=== PATIENT | female | born 1975 | race Two or more races ===

== ENCOUNTER 2017-03-20 10:24 | Inpatient (IN) | payer MEDICAID ==
[~2017-03-20] VITALS: Ht 160 cm; Wt 59.0 kg
[2017-03-20] VITALS (16 sets, daily range): BP systolic 75–139; BP diastolic 44–88
[2017-03-20] MEDS ORDERED: VALPROIC ACID1 ML GT (11:06)
[2017-03-20] MEDS ORDERED: LEVETIRACE100 MG/1 M GT (11:06)
[2017-03-20] MEDS ORDERED: FAMOTIDINE20 MG/2 M1 GT (11:06)
[2017-03-20] MEDS ORDERED: METOPROLOL TART25 MG GT (11:06)
[2017-03-20] MEDS ORDERED: ASPIR 8181 MG GT (11:06)
[2017-03-20] MEDS ORDERED: FERROUS SULFAT325 MG GT (11:06)
[2017-03-20 11:38] LABS: APPEARANCE,URINE CLEAR; BILIRUBIN, URINE NEGATIVE (NEGATIVE); COLOR,URINE PALE YELLOW; GLUCOSE, URINE (UA) NEGATIVE (NEGATIVE); KETONES,URINE NEGATIVE (NEGATIVE); LEUKOCYTE ESTERASE ,URINE NEGATIVE (NEGATIVE); NITRITE,URINE NEGATIVE (NEGATIVE); PH,URINE 6 (4.5-8.0); PROTEIN,URINE NEGATIVE (NEGATIVE); UROBILINOGEN,URINE NORMAL MG/DL (0.0-1.0)
[2017-03-20 11:40] LABS: HEMATOCRIT 13.9 % (37.0-47.0); MEAN CORPUSCULAR VOLUME 94 FL (80-99); PLATELET COUNT 202 K/UL (150-450); RED BLOOD COUNT 1.48 M/UL (4.20-5.40); RED CELL DISTRIBUTION WIDTH 13.2 % (11.6-14.8); WHITE BLOOD COUNT 19.5 K/UL (4.8-10.8)
[2017-03-20 11:41] LABS: HEMOGLOBIN 4.9 G/DL (12.0-16.0)
[2017-03-20 11:56] LABS: ANION GAP 10 mmol/L (5-15); BLOOD UREA NITROGEN 20 mg/dL (7-18); CARBON DIOXIDE 25 MMOL/L (21-32); CHLORIDE 101 MMOL/L (98-107); CREATININE 0.6 MG/DL (0.55-1.30); POTASSIUM 3.7 MMOL/L (3.5-5.1); SODIUM 136 MMOL/L (136-145)
[2017-03-20 12:09] LABS: ALANINE AMINOTRANSFERASE 12 U/L (12-78); ALBUMIN 2.4 G/DL (3.4-5.0); ALBUMIN/GLOBULIN RATIO 0.6 (1.0-2.7); ALKALINE PHOSPHATASE 82 U/L (46-116); ASPARTATE AMINO TRANSFERASE 17 U/L (15-37); BILIRUBIN,TOTAL 0.4 MG/DL (0.2-1.0); CKMB < 0.5 NG/ML (0.0-3.6); CREATINE KINASE 24 U/L (26-308)
[2017-03-20] MEDS ORDERED: Piperacillin/Tazobactam 3.375 GM in NS 110 ML IVPB ONE (12:30)
[2017-03-20] MEDS ORDERED: Zosyn 3.375gm inj ONE (12:37)
[2017-03-20 12:45] LABS: BASOPHILS % (AUTO) 0.4 % (0.0-2.0); EOSINOPHILS % (AUTO) 0.2 % (0.0-3.0); HEMATOCRIT 29.3 % (37.0-47.0); HEMOGLOBIN 10.1 G/DL (12.0-16.0); LYMPHOCYTES % (AUTO) 14.6 % (20.0-45.0); MEAN CORPUSCULAR VOLUME 95 FL (80-99); MONOCYTES % (AUTO) 11.1 % (1.0-10.0); NEUTROPHILS % (AUTO) 73.6 % (45.0-75.0); PLATELET COUNT 146 K/UL (150-450); RED BLOOD COUNT 3.09 M/UL (4.20-5.40); RED CELL DISTRIBUTION WIDTH 13.4 % (11.6-14.8); WHITE BLOOD COUNT 11.5 K/UL (4.8-10.8)
--- NOTE | 2017-03-20 14:14 | Emergency Room Report ---
History of Present Illness General Chief Complaint: Dyspnea/Respdistress Source: EMS Present Illness HPI Patient presents with reports of fever and shortness of breath from nursing facility Patient herself is nonverbal cannot provide any information Paramedics report the patient being tachypneic and appears to be in respiratory distress after being removed from the ventilator appear to be breathing better Patient had a documented fever at the facility No reports of vomiting unknown regarding diarrhea Allergies: Coded Allergies: No Known Allergies (Unverified , 03/20/17) Patient History Limited by: medical condition Past Medical History: see triage record Pertinent Family History: unable to obtain Reviewed Nursing Documentation: PMH: Agreed, PSxH: Agreed Nursing Documentation-PMH Hx Hypertension: Yes - anemia Hx Diabetes: Yes Hx Seizures: Yes Review of Systems All Other Systems: limited - Other than the ones mentioned in the history of present illness all others are reviewed however they do stay limited due to the patient's mental status Physical Exam Vital Signs Date Time Temp Pulse Resp B/P (MAP) Pulse Ox O2 Delivery O2 Flow Rate FiO2 03/20/17 10:25 108 30 123/77 99 Mechanical Ventilator 03/20/17 10:30 40 03/20/17 11:24 100.8 Sp02 EP Interpretation: reviewed, normal General Appearance: mild distress - Appears short of breath Head: normocephalic, atraumatic Eyes: bilateral eye PERRL ENT: dry mucus membranes Neck: supple, other - Tracheostomy in place Respiratory: crackles - Diffusely and tachypneic Cardiovascular #1: regular rate, rhythm, no edema Gastrointestinal: non tender - Feeding tube in place, soft, no mass Genitourinary: no CVA tenderness Musculoskeletal: other - Patient is chronically debilitated does not follow commands Neurologic: responsive - To physical stimuli Skin: other - Chronically debilitated, skin tear and edema Procedures Critical Care Time Critical Care Time 50 minutes for multiple re\re evaluations Findings concerning for cardiopulmonary arrest not including any procedural time Medical Decision Making Diagnostic Impression: Primary Impression: Pneumonia Additional Impression: Septic shock ER Course Patient is a fairly complex patient with multiple differential to consideration including but not limited to cardiac cardiopulmonary and vascular emergencies Patient had sepsis protocol initiated Initial fluid bolus along with antibiotics Patient however did again have hypotensive episode requiring pressors Sepsis reexamination Time:1410 VS refer to nursing note cvs: RRR respiratory: improved respiration peripheral pulses: 2+radial cap refill:<2 seconds skin exam: warm, dry, not mottled Labs Test 03/20/17 11:05 03/20/17 12:15 White Blood Count 19.5 K/UL (4.8-10.8) 11.5 K/UL (4.8-10.8) Red Blood Count 1.48 M/UL (4.20-5.40) 3.09 M/UL (4.20-5.40) Hemoglobin 4.9 G/DL (12.0-16.0) 10.1 G/DL (12.0-16.0) Hematocrit 13.9 % (37.0-47.0) 29.3 % (37.0-47.0) Mean Corpuscular Volume 94 FL (80-99) 95 FL (80-99) Mean Corpuscular Hemoglobin 33.2 PG (27.0-31.0) 32.5 PG (27.0-31.0) Mean Corpuscular Hemoglobin Concent 35.5 G/DL (32.0-36.0) 34.3 G/DL (32.0-36.0) Red Cell Distribution Width 13.2 % (11.6-14.8) 13.4 % (11.6-14.8) Platelet Count 202 K/UL (150-450) 146 K/UL (150-450) Mean Platelet Volume 6.3 FL (6.5-10.1) 7.0 FL (6.5-10.1) Neutrophils (%) (Auto) % (45.0-75.0) 73.6 % (45.0-75.0) Lymphocytes (%) (Auto) % (20.0-45.0) 14.6 % (20.0-45.0) Monocytes (%) (Auto) % (1.0-10.0) 11.1 % (1.0-10.0) Eosinophils (%) (Auto) % (0.0-3.0) 0.2 % (0.0-3.0) Basophils (%) (Auto) % (0.0-2.0) 0.4 % (0.0-2.0) Differential Total Cells Counted 100 Neutrophils % (Manual) 79 % (45-75) Lymphocytes % (Manual) 11 % (20-45) Monocytes % (Manual) 5 % (1-10) Eosinophils % (Manual) 0 % (0-3) Basophils % (Manual) 0 % (0-2) Band Neutrophils 5 % (0-8) Platelet Estimate Adequate Platelet Morphology Normal Hypochromasia 1+ Urine Color Pale yellow Urine Appearance Clear Urine pH 6 (4.5-8.0) Urine Specific [place] 1.005 (1.005-1.035) Urine Protein Negative (NEGATIVE) Urine Glucose (UA) Negative (NEGATIVE) Urine Ketones Negative (NEGATIVE) Urine Occult Blood Negative (NEGATIVE) Urine Nitrite Negative (NEGATIVE) Urine Bilirubin Negative (NEGATIVE) Urine Urobilinogen Normal MG/DL (0.0-1.0) Urine Leukocyte Esterase Negative (NEGATIVE) Sodium Level 136 MMOL/L (136-145) Potassium Level 3.7 MMOL/L (3.5-5.1) Chloride Level 101 MMOL/L (98-107) Carbon Dioxide Level 25 MMOL/L (21-32) Anion Gap 10 mmol/L (5-15) Blood Urea Nitrogen 20 mg/dL (7-18) Creatinine 0.6 MG/DL (0.55-1.30) Estimat Glomerular Filtration Rate > 60 mL/min (>60) Glucose Level 220 MG/DL (74-106) Lactic Acid Level 4.40 mmol/L (0.66-2.22) 2.70 mmol/L (0.66-2.22) Calcium Level 9.0 MG/DL (8.5-10.1) Total Bilirubin 0.4 MG/DL (0.2-1.0) Aspartate Amino Transf (AST/SGOT) 17 U/L (15-37) Alanine Aminotransferase (ALT/SGPT) 12 U/L (12-78) Alkaline Phosphatase 82 U/L (46-116) Total Creatine Kinase 24 U/L (26-308) Creatine Kinase MB < 0.5 NG/ML (0.0-3.6) Creatine Kinase MB Relative Index Troponin I 0.000 ng/mL (0.000-0.056) Pro-B-Type Natriuretic Peptide 511 pg/mL (0-125) Total Protein 6.6 G/DL (6.4-8.2) Albumin 2.4 G/DL (3.4-5.0) Globulin 4.2 g/dL Albumin/Globulin Ratio 0.6 (1.0-2.7) Lipase 56 U/L (73-393) Rhythm Strip Diag. Results EP Interpretation: yes Rate: 77 Rhythm: NSR, no PVC's, no ectopy Chest X-Ray Diagnostic Results Chest X-Ray Diagnostic Results : Chest X-Ray Ordered: Yes # of Views/Limited/Complete: 1 View Indication: Shortness of Breath EP Interpretation: Yes Interpretation: no pneumothorax, other - Bilateral effusions, right lower lobe infiltrate borderline cardiomegaly Impression: Other - Infiltrate Electronically Signed by: Tori Hayden DO Last Vital Signs Date Time Temp Pulse Resp B/P (MAP) Pulse Ox O2 Delivery O2 Flow Rate FiO2 03/20/17 14:03 94 18 100/66 99 Mechanical Ventilator 40 03/20/17 13:48 98.5 Status: worsened Disposition: ADMITTED INPATIENT Condition: Critical Referrals: ADAMARIS ESCOBEDO (PCP) TORI HAYDEN D.O. Mar 20, 2017 14:14
[2017-03-20] MEDS ORDERED: DOPamine 400mg/250ml 250 ML IV SCH (14:15)
[2017-03-20] MEDS ORDERED: Levophed 4mg/4mL Inj IV ONE (14:33)
--- NOTE | 2017-03-20 14:40 | Diagnostic Imaging Report ---
Indication: Shortness of breath Technique: One view of the chest Comparison: none Findings: Hazy opacity is seen in the right lung base. Left lung and pleural space are clear. There is a left arm PICC. The tracheostomy. The heart size is normal. There is a gastrostomy. The stomach is distended Impression: Hazy right basilar opacity, may reflect infiltrate, pleural fluid, or combination of both PICC, tracheostomy, and gastrostomy are demonstrated
[2017-03-20] MEDS ORDERED: NS 275 ML ONE (14:42)
[2017-03-20] MEDS ORDERED: LORazepam Inj 2mg/ml 1ml IV PRN (15:15)
[2017-03-20] MEDS ORDERED: Morphine Sulfate 4mg/ml Inj IVP PRN (15:15)
[2017-03-20] MEDS ORDERED: Miralax 17gm pkt ORAL PRN (15:15)
[2017-03-20] MEDS ORDERED: Albuterol/Ipratropium 3ml neb HHN PRN (15:15)
[2017-03-20] MEDS ORDERED: Vancomycin 1.5 GM/D5W 250ML IVPB ONE (17:00)
[2017-03-20] MEDS ORDERED: Acetaminophen 650mg/20.3ml ONE (18:54)
[2017-03-20] MEDS ORDERED: LORazepam Inj 2mg/ml 1ml IV ONE (19:45)
[2017-03-20] MEDS: levETIRAcetam 500mg/5ml Liquid GT SCH (19:56)
[2017-03-20] MEDS ORDERED: ARTIFICIAL TEAR15 ML BOTH EYES (20:03)
[2017-03-20] MEDS: Heparin 5000 units/ml inj SUBQ SCH (21:22)
[2017-03-21] VITALS (23 sets, daily range): BP systolic 86–137; BP diastolic 48–99
[2017-03-21] MEDS: Vancomycin 1 GM in D5W 275 ML IVPB SCH ×2 (04:36→17:57)
--- NOTE | 2017-03-21 07:25 | History and Physical ---
History of Present Illness General Date patient seen: Mar 20, 2017 Reason for Hospitalization: Dyspnea/Respdistress Present Illness HPI 41 year old female with hx of chronic trach/vent/peg/ non-verbal from [facility] presented with reports of fever and shortness. She was febrile and hypotensive in the ER and was started on Dopamine and transferred to ICU Allergies: Coded Allergies: No Known Allergies (Unverified , 03/20/17) Medication History Scheduled Aspirin* (Aspir 81*), 81 MG GT DAILY, (Reported) Dextran 70/Hypromellose (Artificial Tears Eye Drops*), 2 DROP BOTH EYES Q6HR, ( Reported) Famotidine (Famotidine), 20 MG GT DAILY, (Reported) Ferrous Sulfate* (Ferrous Sulfate*), 7.5 ML GT DAILY, (Reported) Levetiracetam* (Levetiracetam*), 10 ML GT BID, (Reported) Metoprolol Tartrate* (Metoprolol Tartrate*), 25 MG GT EVERY 12 HOURS, (Reported) Discontinued Medications Valproic Acid (Valproic Acid), 15 ML GT TID, (Reported) Discontinued Reason: Prescription changed Patient History Healthcare decision maker NYLA ACUNA Resuscitation status Full Code Advanced Directive on File No Past Medical/Surgical History Past Medical/Surgical History: (1) Chronic respiratory failure (2) G tube feedings Review of Systems All Other Systems: negative except mentioned in HPI Physical Exam General Appearance: cachetic Lines, tubes and drains: gtube Neck: non-tender, normal alignment Respiratory/Chest: chest wall non-tender, lungs clear Cardiovascular/Chest: normal peripheral pulses, regular rhythm, no JVD Last 24 Hour Vital Signs Date Time Temp Pulse Resp B/P (MAP) Pulse Ox O2 Delivery O2 Flow Rate FiO2 03/21/17 06:00 99.5 98 19 137/68 100 Mechanical Ventilator 40 03/21/17 05:29 85 19 40 03/21/17 05:00 105 18 98/56 100 Mechanical Ventilator 40 03/21/17 04:00 109 03/21/17 04:00 100.1 109 18 93/66 100 Mechanical Ventilator 40 03/21/17 04:00 40 03/21/17 03:27 98 20 40 03/21/17 03:00 111 18 98/48 99 Mechanical Ventilator 40 03/21/17 02:43 100.4 03/21/17 02:00 114 20 106/65 100 Mechanical Ventilator 40 03/21/17 01:30 100.4 113 20 117/74 100 Mechanical Ventilator 40 03/21/17 01:10 100 18 40 2 01:00 93 19 109/69 100 Mechanical Ventilator 40 2 00:00 100.0 88 18 101/79 100 Mechanical Ventilator 40 03/21/17 00:00 40 03/20/17 23:41 98 2 23:38 99 20 40 2 23:30 93 19 114/71 100 Mechanical Ventilator 40 03/20/17 23:00 77 18 137/68 100 Mechanical Ventilator 40 03/20/17 22:30 79 18 98/68 100 Mechanical Ventilator 40 03/20/17 22:00 78 18 90/59 100 Mechanical Ventilator 40 218 21:30 85 18 75/44 100 Mechanical Ventilator 40 03/20/17 21:15 88 18 93/56 100 Mechanical Ventilator 40 03/20/17 21:01 98 03/20/17 21:00 40 03/20/17 21:00 99.4 95 18 112/73 100 Mechanical Ventilator 40 03/20/17 20:56 78 18 40 03/20/17 19:31 100.3 85 18 119/85 100 Mechanical Ventilator 40 03/20/17 19:30 119/85 218 19:15 162/95 2 19:00 141/92 218 18:45 94 18 40 2 18:42 100.3 93 18 135/84 100 Mechanical Ventilator 40 03/20/17 18:30 132/87 218 18:00 92 18 130/86 100 Mechanical Ventilator 40 18 18:00 125/65 2/9/18 17:45 113/74 218 17:30 125/65 2/18 17:15 118/78 2//18 17:15 96 18 40 218 17:00 126/78 2918 16:51 81 16 111/71 100 Mechanical Ventilator 40 218 16:50 119/81 2//18 16:45 114/79 218 16:40 125/81 2/9/18 16:35 161/88 03/20/17 16:20 132/90 03/20/17 16:15 138/83 03/20/17 16:10 138/82 03/20/17 16:05 129/84 03/20/17 16:00 139/88 03/20/17 16:00 98.8 85 18 139/88 100 Mechanical Ventilator 40 03/20/17 15:55 140/83 03/20/17 15:50 133/81 03/20/17 15:45 131/77 03/20/17 15:40 129/81 03/20/17 15:35 127/82 03/20/17 15:30 126/79 03/20/17 15:29 94 18 40 03/20/17 15:25 118/84 03/20/17 15:20 129/81 03/20/17 15:15 121/87 03/20/17 15:10 125/72 03/20/17 15:05 137/84 03/20/17 15:00 84 18 139/88 99 Mechanical Ventilator 40 03/20/17 15:00 138/76 03/20/17 14:55 87/42 03/20/17 14:50 81/42 03/20/17 14:45 87/63 03/20/17 14:44 87/63 03/20/17 14:16 81/54 03/20/17 14:03 94 18 100/66 99 Mechanical Ventilator 40 03/20/17 13:48 98.5 03/20/17 13:45 97 20 113/78 99 Mechanical Ventilator 40 03/20/17 13:15 100 20 40 03/20/17 12:36 101 20 112/80 100 Mechanical Ventilator 40 03/20/17 11:32 45 03/20/17 11:24 100.8 104 20 97/66 100 Mechanical Ventilator 45 03/20/17 11:00 40 03/20/17 10:35 103 20 Mechanical Ventilator 45 03/20/17 10:30 108 20 40 03/20/17 10:25 108 30 123/77 99 Mechanical Ventilator Intake and Output 03/20/17 03/21/17 19:00 07:00 Intake Total 2000 ml 420 ml Output Total 1 ml 180 ml Balance 1999 ml 240 ml Intake Oral 0 ml IV Total 2000 ml 275 ml Tube Feeding 105 ml Other 40 ml Output Urine Total 1 ml 180 ml # Voids 5 Laboratory Tests Test 03/20/17 11:05 03/20/17 12:15 03/21/17 04:20 03/21/17 06:40 White Blood Count 19.5 K/UL (4.8-10.8) H 11.5 K/UL (4.8-10.8) H Pending Red Blood Count 1.48 M/UL (4.20-5.40) L 3.09 M/UL (4.20-5.40) L Pending Hemoglobin 4.9 G/DL (12.0-16.0) *L 10.1 G/DL (12.0-16.0) #L Pending Hematocrit 13.9 % (37.0-47.0) L 29.3 % (37.0-47.0) #L Pending Mean Corpuscular Volume 94 FL (80-99) 95 FL (80-99) Pending Mean Corpuscular Hemoglobin 33.2 PG (27.0-31.0) H 32.5 PG (27.0-31.0) H Pending Mean Corpuscular Hemoglobin Concent 35.5 G/DL (32.0-36.0) 34.3 G/DL (32.0-36.0) Pending Red Cell Distribution Width 13.2 % (11.6-14.8) 13.4 % (11.6-14.8) Pending Platelet Count 202 K/UL (150-450) 146 K/UL (150-450) L Pending Mean Platelet Volume 6.3 FL (6.5-10.1) L 7.0 FL (6.5-10.1) Pending Neutrophils (%) (Auto) % (45.0-75.0) 73.6 % (45.0-75.0) Pending Lymphocytes (%) (Auto) % (20.0-45.0) 14.6 % (20.0-45.0) L Pending Monocytes (%) (Auto) % (1.0-10.0) 11.1 % (1.0-10.0) H Pending Eosinophils (%) (Auto) % (0.0-3.0) 0.2 % (0.0-3.0) Pending Basophils (%) (Auto) % (0.0-2.0) 0.4 % (0.0-2.0) Pending Differential Total Cells Counted 100 Neutrophils % (Manual) 79 % (45-75) H Lymphocytes % (Manual) 11 % (20-45) L Monocytes % (Manual) 5 % (1-10) Eosinophils % (Manual) 0 % (0-3) Basophils % (Manual) 0 % (0-2) Band Neutrophils 5 % (0-8) Platelet Estimate Adequate Platelet Morphology Normal Hypochromasia 1+ Urine Color Pale yellow Urine Appearance Clear Urine pH 6 (4.5-8.0) Urine Specific [place] 1.005 (1.005-1.035) Urine Protein Negative (NEGATIVE) Urine Glucose (UA) Negative (NEGATIVE) Urine Ketones Negative (NEGATIVE) Urine Occult Blood Negative (NEGATIVE) Urine Nitrite Negative (NEGATIVE) Urine Bilirubin Negative (NEGATIVE) Urine Urobilinogen Normal MG/DL (0.0-1.0) Urine Leukocyte Esterase Negative (NEGATIVE) Sodium Level 136 MMOL/L (136-145) Pending Potassium Level 3.7 MMOL/L (3.5-5.1) Pending Chloride Level 101 MMOL/L (98-107) Pending Carbon Dioxide Level 25 MMOL/L (21-32) Pending Anion Gap 10 mmol/L (5-15) Blood Urea Nitrogen 20 mg/dL (7-18) H Pending Creatinine 0.6 MG/DL (0.55-1.30) Pending Estimat Glomerular Filtration Rate > 60 mL/min (>60) Pending Glucose Level 220 MG/DL (74-106) H Pending Lactic Acid Level 4.40 mmol/L (0.66-2.22) H 2.70 mmol/L (0.66-2.22) H Pending Calcium Level 9.0 MG/DL (8.5-10.1) Pending Total Bilirubin 0.4 MG/DL (0.2-1.0) Aspartate Amino Transf (AST/SGOT) 17 U/L (15-37) Alanine Aminotransferase (ALT/SGPT) 12 U/L (12-78) Alkaline Phosphatase 82 U/L (46-116) Total Creatine Kinase 24 U/L (26-308) L Creatine Kinase MB < 0.5 NG/ML (0.0-3.6) Creatine Kinase MB Relative Index Troponin I 0.000 ng/mL (0.000-0.056) Pro-B-Type Natriuretic Peptide 511 pg/mL (0-125) H Total Protein 6.6 G/DL (6.4-8.2) Albumin 2.4 G/DL (3.4-5.0) L Pending Globulin 4.2 g/dL Albumin/Globulin Ratio 0.6 (1.0-2.7) L Lipase 56 U/L (73-393) L Phosphorus Level Pending Microbiology Date/Time Source Procedure Growth Status 03/20/17 11:05 Nasal Nares Influenza Types A,B Antigen (GIDEON) - Final Complete Height (Feet): 5 Height (Inches): 3.00 Weight (Pounds): 130 Medications Current Medications Medications (Trade) Dose Ordered Sig/Marlen Route PRN Reason Start Time Stop Time Status Last Admin Dose Admin Acetaminophen (Tylenol) 650 mg Q4H PRN ORAL FEVER 03/20/17 15:15 04/19/17 15:14 03/21/17 01:44 Albuterol/ Ipratropium (Albuterol/ Ipratropium) 3 ml EVERY 4 HOURS PRN HHN Shortness of Breath 03/20/17 15:15 03/25/17 15:14 Dextrose (Dextrose 50%) STAT PRN IV Hypoglycemia 03/20/17 15:15 04/19/17 15:14 Dopamine HCl/ Dextrose 250 ml @ 0 mls/hr Q24H IV 03/20/17 14:15 04/19/17 14:14 03/20/17 14:16 Heparin Sodium (Porcine) (Heparin 5000 units/ml) 5,000 units EVERY 12 HOURS SUBQ 03/20/17 21:00 04/19/17 20:59 03/20/17 21:22 Levetiracetam (Keppra) 1,000 mg BID GT 03/20/17 18:00 04/19/17 17:59 03/20/17 19:56 Lorazepam (Ativan 2mg/ml 1ml) 2 mg EVERY 2 HOURS PRN IV For Anxiety 03/20/17 15:15 03/27/17 15:14 03/21/17 01:43 Morphine Sulfate (Morphine Sulfate) 4 mg EVERY 4 HOURS PRN IVP Severe Pain (Pain Scale 7-10) 03/20/17 15:15 03/27/17 15:14 Norepinephrine Bitartrate 8 mg/ Sodium Chloride 250 ml @ 0 mls/hr Q24H PRN IV For hypotension 03/20/17 22:00 04/19/17 21:59 Ondansetron HCl (Zofran) 4 mg Q6H PRN IVP Nausea & Vomiting 03/20/17 15:15 04/19/17 15:14 Pantoprazole (Protonix) 40 mg DAILY IV 03/21/17 09:00 04/20/17 08:59 Polyethylene Glycol (Miralax) 17 gm DAILYPRN PRN ORAL Constipation 03/20/17 15:15 04/19/17 15:14 Vancomycin HCl 1 gm/Dextrose 275 ml @ 183.3 mls/ hr Q12H IVPB 03/21/17 05:00 03/26/17 04:59 03/21/17 04:36 Assessment/Plan Problem List: (1) Septic shock ICD Codes: A41.9 - Sepsis, unspecified organism; R65.21 - Severe sepsis with septic shock SNOMED: 36435043 (2) Pneumonia ICD Codes: J18.9 - Pneumonia, unspecified organism SNOMED: 119177910 (3) Chronic respiratory failure ICD Codes: J96.10 - Chronic respiratory failure, unspecified whether with hypoxia or hypercapnia SNOMED: 03432090 (4) G tube feedings ICD Codes: Z93.1 - Gastrostomy status SNOMED: 761188345, 701026792 Assessment/Plan iv fluids iv abx check electroltyes dvt prophylaxis gtube feeding check electroltyes total life support LEATHA FOSS Mar 21, 2017 07:25
--- NOTE | 2017-03-21 07:27 | Pulmonolgy Critical Care Note ---
Critical Care - Asmt/Plan Problems: (1) Septic shock (2) Chronic respiratory failure (3) G tube feedings (4) Pneumonia Respiratory: monitor respiratory rate Cardiac: continue to monitor HR/BP Renal: F/U I&O, keep IV fluid Infectious Disease: check cultures Gastrointestinal: hold feedings Endocrine: monitor blood sugar, check HgA1C Neurologic: PRN Ativan Affect: PRN ativan Prophylaxis: Heparin Time Spent (Minutes): 30 Critical Care - Objective Last 24 Hour Vital Signs Date Time Temp Pulse Resp B/P (MAP) Pulse Ox O2 Delivery O2 Flow Rate FiO2 03/21/17 06:50 89 18 40 03/21/17 06:00 99.5 98 19 137/68 100 Mechanical Ventilator 40 03/21/17 05:29 85 19 40 03/21/17 05:00 105 18 98/56 100 Mechanical Ventilator 40 03/21/17 04:00 109 03/21/17 04:00 100.1 109 18 93/66 100 Mechanical Ventilator 40 03/21/17 04:00 40 03/21/17 03:27 98 20 40 03/21/17 03:00 111 18 98/48 99 Mechanical Ventilator 40 03/21/17 02:43 100.4 03/21/17 02:00 114 20 106/65 100 Mechanical Ventilator 40 03/21/17 01:30 100.4 113 20 117/74 100 Mechanical Ventilator 40 03/21/17 01:10 100 18 40 03/21/17 01:00 93 19 109/69 100 Mechanical Ventilator 40 03/21/17 00:00 100.0 88 18 101/79 100 Mechanical Ventilator 40 03/21/17 00:00 40 03/20/17 23:41 98 03/20/17 23:38 99 20 40 03/20/17 23:30 93 19 114/71 100 Mechanical Ventilator 40 03/20/17 23:00 77 18 137/68 100 Mechanical Ventilator 40 03/20/17 22:30 79 18 98/68 100 Mechanical Ventilator 40 03/20/17 22:00 78 18 90/59 100 Mechanical Ventilator 40 03/20/17 21:30 85 18 75/44 100 Mechanical Ventilator 40 03/20/17 21:15 88 18 93/56 100 Mechanical Ventilator 40 03/20/17 21:01 98 03/20/17 21:00 40 2/9/18 21:00 99.4 95 18 112/73 100 Mechanical Ventilator 40 218 20:56 78 18 40 218 19:31 100.3 85 18 119/85 100 Mechanical Ventilator 40 218 19:30 119/85 218 19:15 162/95 2/18 19:00 141/92 218 18:45 94 18 40 218 18:42 100.3 93 18 135/84 100 Mechanical Ventilator 40 18 18:30 132/87 218 18:00 92 18 130/86 100 Mechanical Ventilator 40 18 18:00 125/65 18 17:45 113/74 03/20/17 17:30 125/65 18 17:15 118/78 18 17:15 96 18 40 03/20/17 17:00 126/78 18 16:51 81 16 111/71 100 Mechanical Ventilator 40 03/20/17 16:50 119/81 03/20/17 16:45 114/79 18 16:40 125/81 18 16:35 161/88 18 16:20 132/90 03/20/17 16:15 138/83 03/20/17 16:10 138/82 18 16:05 129/84 18 16:00 139/88 03/20/17 16:00 98.8 85 18 139/88 100 Mechanical Ventilator 40 03/20/17 15:55 140/83 2 15:50 133/81 18 15:45 131/77 18 15:40 129/81 18 15:35 127/82 218 15:30 126/79 18 15:29 94 18 40 03/20/17 15:25 118/84 218 15:20 129/81 218 15:15 121/87 18 15:10 125/72 18 15:05 137/84 2 15:00 84 18 139/88 99 Mechanical Ventilator 40 03/20/17 15:00 138/76 03/20/17 14:55 87/42 03/20/17 14:50 81/42 03/20/17 14:45 87/63 03/20/17 14:44 87/63 03/20/17 14:16 81/54 03/20/17 14:03 94 18 100/66 99 Mechanical Ventilator 40 03/20/17 13:48 98.5 03/20/17 13:45 97 20 113/78 99 Mechanical Ventilator 40 03/20/17 13:15 100 20 40 03/20/17 12:36 101 20 112/80 100 Mechanical Ventilator 40 03/20/17 11:32 45 03/20/17 11:24 100.8 104 20 97/66 100 Mechanical Ventilator 45 03/20/17 11:00 40 03/20/17 10:35 103 20 Mechanical Ventilator 45 03/20/17 10:30 108 20 40 03/20/17 10:25 108 30 123/77 99 Mechanical Ventilator Status: obtunded Condition: critical HEENT: atraumatic Neck: full ROM Abdomen: non-tender, active bowel sounds Extremities: edema Micro: Microbiology Date/Time Source Procedure Growth Status 03/20/17 11:05 Nasal Nares Influenza Types A,B Antigen (GIDEON) - Final Complete Critical Care - Subjective ROS Limited/Unobtainable: Yes ICU Day: 2 Condition: critical EKG Rhythm: Sinus Rhythm FI02: 40 Vent Support Breath Rate: 18 Vent Support Mode: AC Vent Tidal Volume: 500 Sputum Amount: Small PEEP: 5.0 PIP: 22 Tube Feeding Amount: 30 I&O: Intake and Output 03/20/17 03/21/17 19:00 07:00 Intake Total 2000 ml 420 ml Output Total 1 ml 180 ml Balance 1999 ml 240 ml Intake Oral 0 ml IV Total 2000 ml 275 ml Tube Feeding 105 ml Other 40 ml Output Urine Total 1 ml 180 ml # Voids 5 CXR: no change Labs: Laboratory Tests Test 03/20/17 11:05 03/20/17 12:15 03/21/17 04:20 03/21/17 06:40 White Blood Count 19.5 K/UL (4.8-10.8) H 11.5 K/UL (4.8-10.8) H Pending Red Blood Count 1.48 M/UL (4.20-5.40) L 3.09 M/UL (4.20-5.40) L Pending Hemoglobin 4.9 G/DL (12.0-16.0) *L 10.1 G/DL (12.0-16.0) #L Pending Hematocrit 13.9 % (37.0-47.0) L 29.3 % (37.0-47.0) #L Pending Mean Corpuscular Volume 94 FL (80-99) 95 FL (80-99) Pending Mean Corpuscular Hemoglobin 33.2 PG (27.0-31.0) H 32.5 PG (27.0-31.0) H Pending Mean Corpuscular Hemoglobin Concent 35.5 G/DL (32.0-36.0) 34.3 G/DL (32.0-36.0) Pending Red Cell Distribution Width 13.2 % (11.6-14.8) 13.4 % (11.6-14.8) Pending Platelet Count 202 K/UL (150-450) 146 K/UL (150-450) L Pending Mean Platelet Volume 6.3 FL (6.5-10.1) L 7.0 FL (6.5-10.1) Pending Neutrophils (%) (Auto) % (45.0-75.0) 73.6 % (45.0-75.0) Pending Lymphocytes (%) (Auto) % (20.0-45.0) 14.6 % (20.0-45.0) L Pending Monocytes (%) (Auto) % (1.0-10.0) 11.1 % (1.0-10.0) H Pending Eosinophils (%) (Auto) % (0.0-3.0) 0.2 % (0.0-3.0) Pending Basophils (%) (Auto) % (0.0-2.0) 0.4 % (0.0-2.0) Pending Differential Total Cells Counted 100 Neutrophils % (Manual) 79 % (45-75) H Lymphocytes % (Manual) 11 % (20-45) L Monocytes % (Manual) 5 % (1-10) Eosinophils % (Manual) 0 % (0-3) Basophils % (Manual) 0 % (0-2) Band Neutrophils 5 % (0-8) Platelet Estimate Adequate Platelet Morphology Normal Hypochromasia 1+ Urine Color Pale yellow Urine Appearance Clear Urine pH 6 (4.5-8.0) Urine Specific [place] 1.005 (1.005-1.035) Urine Protein Negative (NEGATIVE) Urine Glucose (UA) Negative (NEGATIVE) Urine Ketones Negative (NEGATIVE) Urine Occult Blood Negative (NEGATIVE) Urine Nitrite Negative (NEGATIVE) Urine Bilirubin Negative (NEGATIVE) Urine Urobilinogen Normal MG/DL (0.0-1.0) Urine Leukocyte Esterase Negative (NEGATIVE) Sodium Level 136 MMOL/L (136-145) Pending Potassium Level 3.7 MMOL/L (3.5-5.1) Pending Chloride Level 101 MMOL/L (98-107) Pending Carbon Dioxide Level 25 MMOL/L (21-32) Pending Anion Gap 10 mmol/L (5-15) Blood Urea Nitrogen 20 mg/dL (7-18) H Pending Creatinine 0.6 MG/DL (0.55-1.30) Pending Estimat Glomerular Filtration Rate > 60 mL/min (>60) Pending Glucose Level 220 MG/DL (74-106) H Pending Lactic Acid Level 4.40 mmol/L (0.66-2.22) H 2.70 mmol/L (0.66-2.22) H Pending Calcium Level 9.0 MG/DL (8.5-10.1) Pending Total Bilirubin 0.4 MG/DL (0.2-1.0) Aspartate Amino Transf (AST/SGOT) 17 U/L (15-37) Alanine Aminotransferase (ALT/SGPT) 12 U/L (12-78) Alkaline Phosphatase 82 U/L (46-116) Total Creatine Kinase 24 U/L (26-308) L Creatine Kinase MB < 0.5 NG/ML (0.0-3.6) Creatine Kinase MB Relative Index Troponin I 0.000 ng/mL (0.000-0.056) Pro-B-Type Natriuretic Peptide 511 pg/mL (0-125) H Total Protein 6.6 G/DL (6.4-8.2) Albumin 2.4 G/DL (3.4-5.0) L Pending Globulin 4.2 g/dL Albumin/Globulin Ratio 0.6 (1.0-2.7) L Lipase 56 U/L (73-393) L Phosphorus Level Pending LEATHA FOSS Mar 21, 2017 07:26
[2017-03-21 07:33] LABS: BASOPHILS % (AUTO) 0.4 % (0.0-2.0); EOSINOPHILS % (AUTO) 0.7 % (0.0-3.0); HEMATOCRIT 23.7 % (37.0-47.0); HEMOGLOBIN 8.2 G/DL (12.0-16.0); LYMPHOCYTES % (AUTO) 14.5 % (20.0-45.0); MEAN CORPUSCULAR VOLUME 95 FL (80-99); MONOCYTES % (AUTO) 7.1 % (1.0-10.0); NEUTROPHILS % (AUTO) 77.3 % (45.0-75.0); PLATELET COUNT 135 K/UL (150-450); RED CELL DISTRIBUTION WIDTH 13.6 % (11.6-14.8); WHITE BLOOD COUNT 9.3 K/UL (4.8-10.8)
[2017-03-21 07:43] LABS: ALBUMIN 2.1 G/DL (3.4-5.0); ANION GAP 8 mmol/L (5-15); BLOOD UREA NITROGEN 11 mg/dL (7-18); CALCIUM 8.6 MG/DL (8.5-10.1); CARBON DIOXIDE 27 MMOL/L (21-32); CHLORIDE 110 MMOL/L (98-107); CREATININE 0.4 MG/DL (0.55-1.30); PHOSPHORUS 2.8 MG/DL (2.5-4.9); SODIUM 144 MMOL/L (136-145)
[2017-03-21 07:48] LABS: POTASSIUM 2.7 MMOL/L (3.5-5.1)
[2017-03-21] MEDS: Heparin 5000 units/ml inj SUBQ SCH ×2 (09:00→22:58)
[2017-03-21] MEDS: Pantoprazole Inj IV SCH (09:32)
[2017-03-21] MEDS: levETIRAcetam 500mg/5ml Liquid GT SCH ×2 (09:32→18:01)
[2017-03-21] MEDS ORDERED: Tubing IV Secondary IV ONE (16:43)
[2017-03-21] MEDS ORDERED: Sterile Water Irrig 1000ml IRRIG ONE (16:43)
[2017-03-21] MEDS ORDERED: NS 275ml ONE (16:43)
[2017-03-22] VITALS: BP 138/61
[2017-03-22 04:00] VITALS: BP 137/97
[2017-03-22] MEDS ORDERED: Dyna-Hex 2% Top Sol 2oz TOPIC ONE (04:00)
[2017-03-22 05:30] LABS: BASOPHILS % (AUTO) 0.5 % (0.0-2.0); EOSINOPHILS % (AUTO) 3.5 % (0.0-3.0); HEMATOCRIT 27.7 % (37.0-47.0); HEMOGLOBIN 9.4 G/DL (12.0-16.0); LYMPHOCYTES % (AUTO) 21.2 % (20.0-45.0); MEAN CORPUSCULAR VOLUME 95 FL (80-99); MONOCYTES % (AUTO) 7.7 % (1.0-10.0); NEUTROPHILS % (AUTO) 67.1 % (45.0-75.0); PLATELET COUNT 147 K/UL (150-450); RED BLOOD COUNT 2.91 M/UL (4.20-5.40); RED CELL DISTRIBUTION WIDTH 13.3 % (11.6-14.8); WHITE BLOOD COUNT 6.6 K/UL (4.8-10.8)
[2017-03-22 05:37] LABS: PHOSPHORUS 4.2 MG/DL (2.5-4.9)
[2017-03-22 05:56] LABS: ALANINE AMINOTRANSFERASE 22 U/L (12-78); ALBUMIN 2.3 G/DL (3.4-5.0); ALBUMIN/GLOBULIN RATIO 0.5 (1.0-2.7); ALKALINE PHOSPHATASE 62 U/L (46-116); ANION GAP 10 mmol/L (5-15); ASPARTATE AMINO TRANSFERASE 18 U/L (15-37); BILIRUBIN,TOTAL 0.5 MG/DL (0.2-1.0); BLOOD UREA NITROGEN 8 mg/dL (7-18); CALCIUM 9.2 MG/DL (8.5-10.1); CARBON DIOXIDE 25 MMOL/L (21-32); CHLORIDE 108 MMOL/L (98-107); CREATININE 0.5 MG/DL (0.55-1.30); POTASSIUM 3.8 MMOL/L (3.5-5.1); SODIUM 143 MMOL/L (136-145)
[2017-03-22] MEDS ORDERED: Vancomycin 750mg/NS 250ml IVPB SCH (07:00)
[2017-03-22 08:00] VITALS: BP 129/91
--- NOTE | 2017-03-22 08:00 | Pulmonolgy Critical Care Note ---
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 Critical Care - Objective Last 24 Hour Vital Signs Date Time Temp Pulse Resp B/P (MAP) Pulse Ox O2 Delivery O2 Flow Rate FiO2 03/22/17 06:58 121 21 40 03/22/17 05:20 117 28 40 03/22/17 04:00 98.6 109 18 137/97 98 Mechanical Ventilator 40 03/22/17 04:00 112 03/22/17 04:00 40 03/22/17 03:20 104 21 40 03/22/17 01:21 112 18 40 03/22/17 00:00 40 03/22/17 00:00 104 03/22/17 00:00 97.7 106 18 138/61 97 Mechanical Ventilator 40 03/21/17 22:48 111 19 40 03/21/17 21:10 108 20 40 03/21/17 20:00 99.5 110 18 114/83 97 Mechanical Ventilator 40 03/21/17 20:00 107 03/21/17 20:00 40 03/21/17 19:45 108 19 110/75 100 Mechanical Ventilator 40 03/21/17 19:13 106 19 40 03/21/17 19:00 106 18 121/85 100 Mechanical Ventilator 40 03/21/17 18:00 102 18 124/99 100 Mechanical Ventilator 40 03/21/17 17:00 97 18 116/81 98 Mechanical Ventilator 40 03/21/17 16:53 106 18 40 03/21/17 16:00 107 03/21/17 16:00 40 03/21/17 16:00 99.7 103 18 104/64 100 Mechanical Ventilator 40 03/21/17 15:00 107 18 108/73 98 Mechanical Ventilator 40 03/21/17 14:49 103 20 40 03/21/17 14:00 104 18 98/63 100 Mechanical Ventilator 40 03/21/17 13:00 96 18 99/61 100 Mechanical Ventilator 40 03/21/17 12:42 101 18 40 03/21/17 12:00 96 03/21/17 12:00 40 03/21/17 12:00 99.8 95 18 93/62 98 Mechanical Ventilator 40 03/21/17 11:00 102 18 95/64 100 Mechanical Ventilator 40 03/21/17 10:50 102 18 40 03/21/17 10:00 110 21 92/62 100 Mechanical Ventilator 40 03/21/17 09:12 88 20 40 03/21/17 09:00 93 19 87/52 100 Mechanical Ventilator 40 03/21/17 08:00 88 03/21/17 08:00 40 03/21/17 08:00 99.9 90 18 91/60 100 Mechanical Ventilator 40 Status: awake Condition: critical HEENT: atraumatic Lungs: clear Heart: HR/BP stable, regular Abdomen: non-tender, feeding tube Extremities: edema Micro: Microbiology Date/Time Source Procedure Growth Status 03/20/17 11:15 Blood Blood Culture - Preliminary NO GROWTH AFTER 24 HOURS Resulted 03/20/17 11:05 Blood Blood Culture - Preliminary NO GROWTH AFTER 24 HOURS Resulted 03/20/17 11:05 Nasal Nares Influenza Types A,B Antigen (GIDEON) - Final Complete Critical Care - Subjective ROS Limited/Unobtainable: No Condition: critical EKG Rhythm: Sinus Rhythm FI02: 40 Vent Support Breath Rate: 18 Vent Support Mode: AC Vent Tidal Volume: 500 Sputum Amount: Large PEEP: 5.0 PIP: 28 Tube Feeding Amount: 30 I&O: Intake and Output 03/21/17 03/22/17 19:00 07:00 Intake Total 780 ml 560 ml Output Total 376 ml 400 ml Balance 404 ml 160 ml Free Water 80 ml 200 ml Tube Feeding 360 ml 360 ml Other 340 ml Output Urine Total 375 ml 400 ml Stool Total 1 ml # Bowel Movements 2 CXR: bilateral infiltrate Labs: Laboratory Tests Test 03/22/17 03:50 White Blood Count 6.6 K/UL (4.8-10.8) Red Blood Count 2.91 M/UL (4.20-5.40) L Hemoglobin 9.4 G/DL (12.0-16.0) L Hematocrit 27.7 % (37.0-47.0) L Mean Corpuscular Volume 95 FL (80-99) Mean Corpuscular Hemoglobin 32.4 PG (27.0-31.0) H Mean Corpuscular Hemoglobin Concent 34.0 G/DL (32.0-36.0) Red Cell Distribution Width 13.3 % (11.6-14.8) Platelet Count 147 K/UL (150-450) L Mean Platelet Volume 7.4 FL (6.5-10.1) Neutrophils (%) (Auto) 67.1 % (45.0-75.0) Lymphocytes (%) (Auto) 21.2 % (20.0-45.0) Monocytes (%) (Auto) 7.7 % (1.0-10.0) Eosinophils (%) (Auto) 3.5 % (0.0-3.0) H Basophils (%) (Auto) 0.5 % (0.0-2.0) Erythrocyte Sedimentation Rate Pending Sodium Level 143 MMOL/L (136-145) Potassium Level 3.8 MMOL/L (3.5-5.1) Chloride Level 108 MMOL/L (98-107) H Carbon Dioxide Level 25 MMOL/L (21-32) Anion Gap 10 mmol/L (5-15) Blood Urea Nitrogen 8 mg/dL (7-18) Creatinine 0.5 MG/DL (0.55-1.30) L Estimat Glomerular Filtration Rate > 60 mL/min (>60) Glucose Level 121 MG/DL (74-106) H Calcium Level 9.2 MG/DL (8.5-10.1) Phosphorus Level 4.2 MG/DL (2.5-4.9) Magnesium Level 1.8 MG/DL (1.8-2.4) Total Bilirubin 0.5 MG/DL (0.2-1.0) Aspartate Amino Transf (AST/SGOT) 18 U/L (15-37) Alanine Aminotransferase (ALT/SGPT) 22 U/L (12-78) Alkaline Phosphatase 62 U/L (46-116) Total Protein 6.7 G/DL (6.4-8.2) Albumin 2.3 G/DL (3.4-5.0) L Globulin 4.4 g/dL Albumin/Globulin Ratio 0.5 (1.0-2.7) L Vancomycin Level Trough 13.8 ug/mL (5.0-12.0) H LEATHA FOSS Mar 22, 2017 08:00
[2017-03-22] MEDS: levETIRAcetam 500mg/5ml Liquid GT SCH ×2 (08:24→17:55)
[2017-03-22] MEDS: Heparin 5000 units/ml inj SUBQ SCH ×2 (08:26→21:28)
[2017-03-22] MEDS: Pantoprazole Inj IV SCH (08:29)
[2017-03-22 12:00] VITALS: BP 100/63
--- NOTE | 2017-03-22 13:23 | Consultation ---
Consult Note Consult Note ID DIC # [id number] LEATHA LIND M.D. Mar 22, 2017 13:23
--- NOTE | 2017-03-22 15:20 | Cardiology Report ---
APPROVED REPORT EKG Measurement Heart [id number] Sinus tachycardia Otherwise normal ECG
[2017-03-22 16:00] VITALS: BP 107/73
[2017-03-22] MEDS: Vancomycin 1250mg/D5W 250ml 250 ML IVPB SCH (16:10)
[2017-03-22] MEDS ORDERED: NS 500ML ONE (16:32)
[2017-03-22] MEDS: Piperacillin/Tazobactam 4.5 GM in NS 110 ML IVPB SCH (17:55)
[2017-03-22 20:00] VITALS: BP 109/74
--- NOTE | 2017-03-22 20:15 | Consultation ---
DATE OF CONSULTATION: 03/22/2017 INFECTIOUS DISEASES CONSULTATION REQUESTING PHYSICIAN: Molly Prabhakar M.D. REASON FOR CONSULTATION: Evaluation of the patient for sepsis, pneumonia, and antibiotic management. HISTORY OF PRESENT ILLNESS: The patient is a 41-year-old female with multiple medical problems, who is admitted to this medical center for shortness of breath and fever. The patient's sputum culture is growing gram-negative rods. Infectious Diseases consultation has been requested for further evaluation of the patient's antibiotic management. PAST MEDICAL HISTORY: 1. Status post tracheostomy. 2. History of seizure disorder. 3. Status post PEG. 4. Hypertension. 5. Ventilator-dependent respiratory failure. 6. Diabetes. 7. Anemia. MEDICATIONS: IV vancomycin. ALLERGIES: No known drug allergies. SOCIAL HISTORY: The patient lives in residential. FAMILY HISTORY: Unavailable. REVIEW OF SYSTEMS: Unobtainable. PHYSICAL EXAMINATION: VITAL SIGNS: Temperature 101.5 degrees, pulse 86, respiratory rate 18, and blood pressure 112/58. HEENT: No pale conjunctivae. No icterus. NECK: No lymphadenopathy. Trach in place. CHEST: Coarse breathing sounds. HEART: S1 and S2. ABDOMEN: Soft. G-tube in place. EXTREMITIES: No cyanosis. NEUROLOGIC: Nonverbal. SKIN: No decubitus. LABORATORY AND DIAGNOSTIC DATA: White blood cells at the time of admission 19. Today, white blood cells 6.6, hemoglobin 9.4, and platelets 147,000. UA unremarkable. BUN 8 and creatinine 0.5. ALT, AST, and alkaline phosphatase unremarkable. Sputum cultures growing gram-negative rods. Blood culture, no growth. Rapid influenza A negative. ASSESSMENT: The patient is a 41-year-old female with: 1. Fever. 2. Leukocytosis, improving. 3. Pneumonia. Chest x-ray showed right basilar opacity/infiltrate. 4. Rule out urinary tract infection. 5. Probable ventilator-associated pneumonia. PLAN: 1. We will continue the patient on IV vancomycin day #1. 2. Add IV Zosyn. 3. Monitor CBC. 4. Monitor BMP. 5. Monitor cultures (blood, urine, and sputum). 6. Monitor chest x-ray. 7. Continue ventilator support. 8. Monitor chest x-ray. 9. Based on the patient's clinical course and laboratories, we will do further recommendations. Thank you, Dr. Prabhakar for allowing me to participate in the care of this patient. I will follow the patient with you during this hospitalization. Hardeep Tyler M.D. DR: Med JOB#: [id number] CC:
[2017-03-22] MEDS: Dyna-Hex 2% Top Sol 2oz TOPIC SCH (21:26)
[2017-03-23] VITALS: BP 123/78
[2017-03-23] MEDS: Piperacillin/Tazobactam 4.5 GM in NS 110 ML IVPB SCH ×3 (02:14→17:46)
[2017-03-23] MEDS: Vancomycin 1250mg/D5W 250ml 250 ML IVPB SCH ×2 (03:32→16:27)
[2017-03-23 04:00] VITALS: BP 121/87
[2017-03-23 04:00] LABS: BASOPHILS % (AUTO) 0.5 % (0.0-2.0); EOSINOPHILS % (AUTO) 3.2 % (0.0-3.0); HEMATOCRIT 23.7 % (37.0-47.0); HEMOGLOBIN 8.2 G/DL (12.0-16.0); LYMPHOCYTES % (AUTO) 19.8 % (20.0-45.0); MEAN CORPUSCULAR VOLUME 94 FL (80-99); MONOCYTES % (AUTO) 9.4 % (1.0-10.0); NEUTROPHILS % (AUTO) 67.1 % (45.0-75.0); PLATELET COUNT 142 K/UL (150-450); RED BLOOD COUNT 2.51 M/UL (4.20-5.40); RED CELL DISTRIBUTION WIDTH 12.3 % (11.6-14.8); WHITE BLOOD COUNT 5.4 K/UL (4.8-10.8)
[2017-03-23 04:21] LABS: ALANINE AMINOTRANSFERASE 33 U/L (12-78); ALBUMIN 2.1 G/DL (3.4-5.0); ALBUMIN/GLOBULIN RATIO 0.5 (1.0-2.7); ALKALINE PHOSPHATASE 63 U/L (46-116); ANION GAP 11 mmol/L (5-15); ASPARTATE AMINO TRANSFERASE 22 U/L (15-37); BILIRUBIN,TOTAL 0.3 MG/DL (0.2-1.0); BLOOD UREA NITROGEN 6 mg/dL (7-18); CALCIUM 8.7 MG/DL (8.5-10.1); CARBON DIOXIDE 25 MMOL/L (21-32); CHLORIDE 106 MMOL/L (98-107); CREATININE 0.4 MG/DL (0.55-1.30); POTASSIUM 3.3 MMOL/L (3.5-5.1); SODIUM 142 MMOL/L (136-145)
[2017-03-23 08:00] VITALS: BP 141/96
[2017-03-23] MEDS: levETIRAcetam 500mg/5ml Liquid GT SCH ×2 (08:30→17:46)
[2017-03-23] MEDS: Pantoprazole Inj IV SCH (08:30)
[2017-03-23] MEDS: Heparin 5000 units/ml inj SUBQ SCH ×2 (08:32→21:35)
[2017-03-23] MEDS ORDERED: Tubing IV Secondary IV ONE (10:04)
[2017-03-23] MEDS ORDERED: NS 500ML ONE (10:04)
--- NOTE | 2017-03-23 10:54 | Pulmonolgy Critical Care Note ---
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 Critical Care - Objective Last 24 Hour Vital Signs Date Time Temp Pulse Resp B/P (MAP) Pulse Ox O2 Delivery O2 Flow Rate FiO2 03/23/17 08:53 93 18 40 03/23/17 08:00 98.1 95 18 141/96 98 03/23/17 06:48 89 19 40 03/23/17 04:50 96 18 40 03/23/17 04:31 99.0 03/23/17 04:00 99.0 94 18 121/87 100 Mechanical Ventilator 40 03/23/17 04:00 91 03/23/17 04:00 40 03/23/17 03:15 97 19 40 03/23/17 02:57 100.5 95 18 100 Mechanical Ventilator 40 03/23/17 01:44 102 22 40 03/23/17 00:00 99.1 103 22 123/78 100 Mechanical Ventilator 40 03/23/17 00:00 82 03/22/17 23:40 85 19 40 03/22/17 21:00 83 18 40 03/22/17 20:00 99.0 88 18 109/74 100 Mechanical Ventilator 40 03/22/17 20:00 40 03/22/17 20:00 96 03/22/17 19:22 103 18 40 03/22/17 17:09 90 18 40 03/22/17 16:00 89 03/22/17 16:00 40 03/22/17 16:00 99.3 86 20 107/73 100 Mechanical Ventilator 40 03/22/17 15:33 88 18 40 03/22/17 13:10 84 18 40 03/22/17 12:00 40 03/22/17 12:00 98.6 103 20 100/63 100 Mechanical Ventilator 40 03/22/17 11:50 93 03/22/17 11:10 102 18 40 Status: sedated Condition: critical HEENT: atraumatic Neck: full ROM Lungs: clear, chest wall tender Heart: HR/BP unstable Abdomen: soft, feeding tube Extremities: edema Decubiti: stage Micro: Microbiology Date/Time Source Procedure Growth Status 03/20/17 11:15 Blood Blood Culture - Preliminary NO GROWTH AFTER 48 HOURS Resulted 03/20/17 11:05 Blood Blood Culture - Preliminary NO GROWTH AFTER 48 HOURS Resulted 03/21/17 06:00 Sputum Gram Stain - Final Resulted 03/21/17 06:00 Sputum Culture - Preliminary Gram Negative Bacillus 1 Gram Negative Bacillus 2 Resulted 03/20/17 13:45 Nasal Nares MRSA Culture - Final NO METHICILLIN RESISTANT STAPH AUREUS... Complete 03/20/17 11:05 Nasal Nares Influenza Types A,B Antigen (GIDEON) - Final Complete 03/22/17 16:35 Straight Cath Urine Culture - Preliminary NO GROWTH Resulted 03/20/17 13:45 Rectum VRE Culture - Final Enterococcus Faecalis - Vre Complete Critical Care - Subjective ROS Limited/Unobtainable: No EKG Rhythm: Sinus Rhythm FI02: 40 Vent Support Breath Rate: 18 Vent Support Mode: AC Vent Tidal Volume: 500 Sputum Amount: Moderate PEEP: 5.0 PIP: 23 Tube Feeding Amount: 30 I&O: Intake and Output 03/22/17 03/23/17 19:00 07:00 Intake Total 953.334 ml 872.500 ml Output Total 1600 ml 600 ml Balance -646.666 ml 272.500 ml Free Water 260 ml 100 ml IV Total 333.334 ml 442.500 ml Tube Feeding 360 ml 330 ml Output Urine Total 1600 ml 600 ml CXR: no new infiltrate Labs: Laboratory Tests Test 03/23/17 03:05 White Blood Count 5.4 K/UL (4.8-10.8) Red Blood Count 2.51 M/UL (4.20-5.40) L Hemoglobin 8.2 G/DL (12.0-16.0) L Hematocrit 23.7 % (37.0-47.0) L Mean Corpuscular Volume 94 FL (80-99) Mean Corpuscular Hemoglobin 32.9 PG (27.0-31.0) H Mean Corpuscular Hemoglobin Concent 34.8 G/DL (32.0-36.0) Red Cell Distribution Width 12.3 % (11.6-14.8) Platelet Count 142 K/UL (150-450) L Mean Platelet Volume 6.6 FL (6.5-10.1) Neutrophils (%) (Auto) 67.1 % (45.0-75.0) Lymphocytes (%) (Auto) 19.8 % (20.0-45.0) L Monocytes (%) (Auto) 9.4 % (1.0-10.0) Eosinophils (%) (Auto) 3.2 % (0.0-3.0) H Basophils (%) (Auto) 0.5 % (0.0-2.0) Sodium Level 142 MMOL/L (136-145) Potassium Level 3.3 MMOL/L (3.5-5.1) L Chloride Level 106 MMOL/L (98-107) Carbon Dioxide Level 25 MMOL/L (21-32) Anion Gap 11 mmol/L (5-15) Blood Urea Nitrogen 6 mg/dL (7-18) L Creatinine 0.4 MG/DL (0.55-1.30) L Estimat Glomerular Filtration Rate > 60 mL/min (>60) Glucose Level 128 MG/DL (74-106) H Calcium Level 8.7 MG/DL (8.5-10.1) Phosphorus Level 5.0 MG/DL (2.5-4.9) H Magnesium Level 1.8 MG/DL (1.8-2.4) Total Bilirubin 0.3 MG/DL (0.2-1.0) Aspartate Amino Transf (AST/SGOT) 22 U/L (15-37) Alanine Aminotransferase (ALT/SGPT) 33 U/L (12-78) Alkaline Phosphatase 63 U/L (46-116) Total Protein 6.3 G/DL (6.4-8.2) L Albumin 2.1 G/DL (3.4-5.0) L Globulin 4.2 g/dL Albumin/Globulin Ratio 0.5 (1.0-2.7) L LEATHA FOSS Mar 23, 2017 10:54
--- NOTE | 2017-03-23 11:19 | Diagnostic Imaging Report ---
Indication: Dyspnea Comparison: 03/20/2017 A single view chest radiograph was obtained. Findings: PICC line and tracheostomy are stable. Heart size is stable. Lungs remain clear. IMPRESSION: No acute disease. No change
[2017-03-23 12:00] VITALS: BP 108/72
[2017-03-23 16:00] VITALS: BP 118/76
[2017-03-23] MEDS: Dyna-Hex 2% Top Sol 2oz TOPIC SCH (19:55)
[2017-03-23 20:00] VITALS: BP 133/99
[2017-03-24] VITALS: BP 124/88
[2017-03-24] MEDS: Piperacillin/Tazobactam 4.5 GM in NS 110 ML IVPB SCH ×3 (01:41→19:17)
[2017-03-24 04:00] VITALS: BP 128/89
[2017-03-24] MEDS: Vancomycin 1250mg/D5W 250ml 250 ML IVPB SCH (04:08)
[2017-03-24 05:24] LABS: BASOPHILS % (AUTO) 0.6 % (0.0-2.0); EOSINOPHILS % (AUTO) 3.2 % (0.0-3.0); HEMATOCRIT 24.2 % (37.0-47.0); HEMOGLOBIN 8.3 G/DL (12.0-16.0); LYMPHOCYTES % (AUTO) 17.5 % (20.0-45.0); MEAN CORPUSCULAR VOLUME 94 FL (80-99); MONOCYTES % (AUTO) 9.5 % (1.0-10.0); NEUTROPHILS % (AUTO) 69.2 % (45.0-75.0); PLATELET COUNT 172 K/UL (150-450); RED BLOOD COUNT 2.57 M/UL (4.20-5.40); RED CELL DISTRIBUTION WIDTH 12.5 % (11.6-14.8); WHITE BLOOD COUNT 4.9 K/UL (4.8-10.8)
[2017-03-24 05:42] LABS: ALANINE AMINOTRANSFERASE 32 U/L (12-78); ALBUMIN 2.2 G/DL (3.4-5.0); ALBUMIN/GLOBULIN RATIO 0.5 (1.0-2.7); ALKALINE PHOSPHATASE 69 U/L (46-116); ANION GAP 11 mmol/L (5-15); ASPARTATE AMINO TRANSFERASE 20 U/L (15-37); BILIRUBIN,TOTAL 0.3 MG/DL (0.2-1.0); BLOOD UREA NITROGEN 7 mg/dL (7-18); CALCIUM 9.3 MG/DL (8.5-10.1); CARBON DIOXIDE 24 MMOL/L (21-32); CHLORIDE 108 MMOL/L (98-107); CREATININE 0.5 MG/DL (0.55-1.30); PHOSPHORUS 5.1 MG/DL (2.5-4.9); POTASSIUM 3.4 MMOL/L (3.5-5.1); SODIUM 143 MMOL/L (136-145)
[2017-03-24 08:00] VITALS: BP 131/94
[2017-03-24] MEDS: levETIRAcetam 500mg/5ml Liquid GT SCH ×2 (08:42→19:18)
[2017-03-24] MEDS: Pantoprazole Inj IV SCH (08:42)
[2017-03-24] MEDS: Heparin 5000 units/ml inj SUBQ SCH ×2 (08:52→21:04)
--- NOTE | 2017-03-24 10:04 | Pulmonolgy Critical Care Note ---
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 - Objective Last 24 Hour Vital Signs Date Time Temp Pulse Resp B/P (MAP) Pulse Ox O2 Delivery O2 Flow Rate FiO2 03/24/17 09:15 90 21 40 03/24/17 08:00 40 03/24/17 08:00 98.3 109 18 131/94 99 Mechanical Ventilator 40 03/24/17 06:53 99 18 40 03/24/17 05:05 104 18 40 03/24/17 04:00 91 03/24/17 04:00 99.1 94 18 128/89 100 Mechanical Ventilator 40 03/24/17 04:00 40 03/24/17 03:19 98 23 40 03/24/17 01:09 91 18 40 03/24/17 00:00 98.5 92 18 124/88 100 Mechanical Ventilator 40 03/24/17 00:00 93 03/24/17 00:00 40 03/23/17 23:22 95 18 40 03/23/17 20:55 99.8 03/23/17 20:41 99 18 40 03/23/17 20:00 100 03/23/17 20:00 100.2 104 22 133/99 100 Mechanical Ventilator 40 03/23/17 20:00 40 03/23/17 19:56 100.2 03/23/17 18:34 98 18 40 03/23/17 16:32 88 18 40 03/23/17 16:03 79 03/23/17 16:02 40 03/23/17 16:00 99.8 78 18 118/76 100 Mechanical Ventilator 40 03/23/17 14:36 105 20 40 03/23/17 13:18 98 18 40 03/23/17 12:06 92 21 40 03/23/17 12:00 98.4 77 20 108/72 100 03/23/17 12:00 40 03/23/17 12:00 88 Status: awake Condition: critical, grave Lungs: clear, chest wall tender Heart: HR/BP unstable, regular Abdomen: non-tender, active bowel sounds, feeding tube Decubiti: location Micro: Microbiology Date/Time Source Procedure Growth Status 03/22/17 16:35 Straight Cath Urine Culture - Preliminary NO GROWTH AFTER 24 HOURS Resulted Critical Care - Subjective ROS Limited/Unobtainable: Yes Condition: critical EKG Rhythm: Sinus Rhythm FI02: 40 Vent Support Breath Rate: 18 Vent Support Mode: AC Vent Tidal Volume: 500 Sputum Amount: Moderate PEEP: 5.0 PIP: 30 Tube Feeding Amount: 30 I&O: Intake and Output 03/23/17 03/24/17 19:00 07:00 Intake Total 870 ml 820.000 ml Output Total 401 ml 600 ml Balance 469 ml 220.000 ml Free Water 150 ml 100 ml IV Total 360.000 ml Tube Feeding 360 ml 360 ml Other 360 ml Output Urine Total 400 ml 600 ml Stool Total 1 ml # Bowel Movements 1 1 CXR: no new changes Labs: Laboratory Tests Test 03/24/17 03:20 White Blood Count 4.9 K/UL (4.8-10.8) Red Blood Count 2.57 M/UL (4.20-5.40) L Hemoglobin 8.3 G/DL (12.0-16.0) L Hematocrit 24.2 % (37.0-47.0) L Mean Corpuscular Volume 94 FL (80-99) Mean Corpuscular Hemoglobin 32.2 PG (27.0-31.0) H Mean Corpuscular Hemoglobin Concent 34.2 G/DL (32.0-36.0) Red Cell Distribution Width 12.5 % (11.6-14.8) Platelet Count 172 K/UL (150-450) Mean Platelet Volume 6.3 FL (6.5-10.1) L Neutrophils (%) (Auto) 69.2 % (45.0-75.0) Lymphocytes (%) (Auto) 17.5 % (20.0-45.0) L Monocytes (%) (Auto) 9.5 % (1.0-10.0) Eosinophils (%) (Auto) 3.2 % (0.0-3.0) H Basophils (%) (Auto) 0.6 % (0.0-2.0) Sodium Level 143 MMOL/L (136-145) Potassium Level 3.4 MMOL/L (3.5-5.1) L Chloride Level 108 MMOL/L (98-107) H Carbon Dioxide Level 24 MMOL/L (21-32) Anion Gap 11 mmol/L (5-15) Blood Urea Nitrogen 7 mg/dL (7-18) Creatinine 0.5 MG/DL (0.55-1.30) L Estimat Glomerular Filtration Rate > 60 mL/min (>60) Glucose Level 124 MG/DL (74-106) H Calcium Level 9.3 MG/DL (8.5-10.1) Phosphorus Level 5.1 MG/DL (2.5-4.9) H Magnesium Level 2.0 MG/DL (1.8-2.4) Total Bilirubin 0.3 MG/DL (0.2-1.0) Aspartate Amino Transf (AST/SGOT) 20 U/L (15-37) Alanine Aminotransferase (ALT/SGPT) 32 U/L (12-78) Alkaline Phosphatase 69 U/L (46-116) Total Protein 6.8 G/DL (6.4-8.2) Albumin 2.2 G/DL (3.4-5.0) L Globulin 4.6 g/dL Albumin/Globulin Ratio 0.5 (1.0-2.7) L LEATHA FOSS Mar 24, 2017 10:04
[2017-03-24] MEDS ORDERED: NS 500ML ONE (11:16)
[2017-03-24 12:00] VITALS: BP 139/91
--- NOTE | 2017-03-24 12:49 | Infectious Diseases Prog Note ---
Assessment/Plan Assessment/Plan ASSESSMENT: The patient is a 41-year-old female with: Fever. Leukocytosis, SP VAPneum Chest x-ray showed right basilar opacity/infiltrate. Scx : PSA and Provid Rapid influenza A/B negative Status post tracheostomy. History of seizure disorder. Status post PEG. Hypertension. Ventilator-dependent respiratory failure. Diabetes. Anemia. PLAN: patient on IV Zosyn day # 3/;10-14 , add Amikacin d# 1/5-7 ( PSA double coverage ) , DC IV vancomycin d# 3 Monitor CBC Monitor BMP. Monitor cultures (blood, urine, and sputum). Monitor chest x-ray. Continue ventilator support Monitor chest x-ray Subjective Allergies: Coded Allergies: No Known Allergies (Unverified , 03/20/17) Subjective Fever Objective Vital Signs Last 24 Hour Vital Signs Date Time Temp Pulse Resp B/P (MAP) Pulse Ox O2 Delivery O2 Flow Rate FiO2 03/24/17 10:40 99 20 40 03/24/17 09:15 90 21 40 03/24/17 08:00 40 03/24/17 08:00 101 03/24/17 08:00 98.3 109 18 131/94 99 Mechanical Ventilator 40 03/24/17 06:53 99 18 40 03/24/17 05:05 104 18 40 03/24/17 04:00 91 03/24/17 04:00 99.1 94 18 128/89 100 Mechanical Ventilator 40 03/24/17 04:00 40 03/24/17 03:19 98 23 40 03/24/17 01:09 91 18 40 03/24/17 00:00 98.5 92 18 124/88 100 Mechanical Ventilator 40 03/24/17 00:00 93 03/24/17 00:00 40 03/23/17 23:22 95 18 40 03/23/17 20:55 99.8 03/23/17 20:41 99 18 40 03/23/17 20:00 100 03/23/17 20:00 100.2 104 22 133/99 100 Mechanical Ventilator 40 03/23/17 20:00 40 03/23/17 19:56 100.2 03/23/17 18:34 98 18 40 03/23/17 16:32 88 18 40 03/23/17 16:03 79 03/23/17 16:02 40 03/23/17 16:00 99.8 78 18 118/76 100 Mechanical Ventilator 40 03/23/17 14:36 105 20 40 03/23/17 13:18 98 18 40 Height (Feet): 5 Height (Inches): 3.00 Weight (Pounds): 130 HEENT: anicteric Respiratory/Chest: no respiratory distress Cardiovascular: regular rhythm Abdomen: no organomegaly Microbiology Date/Time Source Procedure Growth Status 03/22/17 16:35 Straight Cath Urine Culture - Preliminary NO GROWTH AFTER 24 HOURS Resulted Laboratory Tests Test 03/24/17 03:20 White Blood Count 4.9 K/UL (4.8-10.8) Red Blood Count 2.57 M/UL (4.20-5.40) L Hemoglobin 8.3 G/DL (12.0-16.0) L Hematocrit 24.2 % (37.0-47.0) L Mean Corpuscular Volume 94 FL (80-99) Mean Corpuscular Hemoglobin 32.2 PG (27.0-31.0) H Mean Corpuscular Hemoglobin Concent 34.2 G/DL (32.0-36.0) Red Cell Distribution Width 12.5 % (11.6-14.8) Platelet Count 172 K/UL (150-450) Mean Platelet Volume 6.3 FL (6.5-10.1) L Neutrophils (%) (Auto) 69.2 % (45.0-75.0) Lymphocytes (%) (Auto) 17.5 % (20.0-45.0) L Monocytes (%) (Auto) 9.5 % (1.0-10.0) Eosinophils (%) (Auto) 3.2 % (0.0-3.0) H Basophils (%) (Auto) 0.6 % (0.0-2.0) Sodium Level 143 MMOL/L (136-145) Potassium Level 3.4 MMOL/L (3.5-5.1) L Chloride Level 108 MMOL/L (98-107) H Carbon Dioxide Level 24 MMOL/L (21-32) Anion Gap 11 mmol/L (5-15) Blood Urea Nitrogen 7 mg/dL (7-18) Creatinine 0.5 MG/DL (0.55-1.30) L Estimat Glomerular Filtration Rate > 60 mL/min (>60) Glucose Level 124 MG/DL (74-106) H Calcium Level 9.3 MG/DL (8.5-10.1) Phosphorus Level 5.1 MG/DL (2.5-4.9) H Magnesium Level 2.0 MG/DL (1.8-2.4) Total Bilirubin 0.3 MG/DL (0.2-1.0) Aspartate Amino Transf (AST/SGOT) 20 U/L (15-37) Alanine Aminotransferase (ALT/SGPT) 32 U/L (12-78) Alkaline Phosphatase 69 U/L (46-116) Total Protein 6.8 G/DL (6.4-8.2) Albumin 2.2 G/DL (3.4-5.0) L Globulin 4.6 g/dL Albumin/Globulin Ratio 0.5 (1.0-2.7) L Current Medications Medications (Trade) Dose Ordered Sig/Marlen Route PRN Reason Start Time Stop Time Status Last Admin Dose Admin Acetaminophen (Tylenol) 650 mg Q4H PRN ORAL FEVER 03/20/17 15:15 04/19/17 15:14 03/23/17 19:56 Albuterol/ Ipratropium (Albuterol/ Ipratropium) 3 ml EVERY 4 HOURS PRN HHN Shortness of Breath 03/20/17 15:15 03/25/17 15:14 Chlorhexidine Gluconate (Nancy-Hex 2%) 1 applic DAILY@2000 TOPIC 03/22/17 20:00 04/21/17 19:59 03/23/17 19:55 Dextrose (Dextrose 50%) STAT PRN IV Hypoglycemia 03/20/17 15:15 04/19/17 15:14 Heparin Sodium (Porcine) (Heparin 5000 units/ml) 5,000 units EVERY 12 HOURS SUBQ 03/20/17 21:00 04/19/17 20:59 03/24/17 08:52 Levetiracetam (Keppra) 1,000 mg BID GT 03/20/17 18:00 04/19/17 17:59 03/24/17 08:42 Lorazepam (Ativan 2mg/ml 1ml) 2 mg EVERY 2 HOURS PRN IV For Anxiety 03/20/17 15:15 03/27/17 15:14 03/21/17 01:43 Morphine Sulfate (Morphine Sulfate) 4 mg EVERY 4 HOURS PRN IVP Severe Pain (Pain Scale 7-10) 03/20/17 15:15 03/27/17 15:14 Ondansetron HCl (Zofran) 4 mg Q6H PRN IVP Nausea & Vomiting 03/20/17 15:15 04/19/17 15:14 Pantoprazole (Protonix) 40 mg DAILY IV 03/21/17 09:00 04/20/17 08:59 03/24/17 08:42 Piperacillin Sod/ Tazobactam Sod 4.5 gm/Sodium Chloride 110 ml @ 27.5 mls/hr Q8H IVPB 03/22/17 18:00 03/29/17 17:59 03/24/17 09:06 Polyethylene Glycol (Miralax) 17 gm DAILYPRN PRN ORAL Constipation 03/20/17 15:15 04/19/17 15:14 Vancomycin HCl (Vanco rx to dose) 1 ea DAILY PRN MISC . 03/22/17 10:45 04/21/17 10:44 Vancomycin HCl/ Dextrose 250 ml @ 166.667 mls/hr Q12HR@0400,1600 IVPB 03/22/17 16:00 03/27/17 15:59 03/24/17 04:08 LEATHA LIND M.D. Mar 24, 2017 12:49
[2017-03-24] MEDS ORDERED: Amikacin Rx to dose MISC PRN (13:00)
--- NOTE | 2017-03-24 13:13 | Diagnostic Imaging Report ---
APPROVED REPORT CPT Code: 07864 Present Symptoms Lower Extremity Pain: Bilateral BILATERAL: Imaging reveals a patent deep venous system bilaterally. There is no evidence of thrombus within the femoral, popliteal or tibial segments. The greater saphenous veins are also within normal limits. Doppler indicates normal spontaneous flow within these segments.
[2017-03-24] MEDS: Amikacin 800 MG in NS 110 ML IV SCH (15:07)
[2017-03-24 16:00] VITALS: BP 125/88
[2017-03-24 20:00] VITALS: BP 134/82
[2017-03-24] MEDS: Dyna-Hex 2% Top Sol 2oz TOPIC SCH (21:02)
[2017-03-25] VITALS: BP 111/65
[2017-03-25] MEDS: Piperacillin/Tazobactam 4.5 GM in NS 110 ML IVPB SCH ×3 (01:23→17:37)
[2017-03-25 01:30] LABS: EOSINOPHILS % (AUTO) 3.8 % (0.0-3.0); HEMATOCRIT 26.6 % (37.0-47.0); MEAN CORPUSCULAR VOLUME 93 FL (80-99); MONOCYTES % (AUTO) 8.9 % (1.0-10.0); NEUTROPHILS % (AUTO) 63.3 % (45.0-75.0); PLATELET COUNT 212 K/UL (150-450); RED BLOOD COUNT 2.85 M/UL (4.20-5.40); RED CELL DISTRIBUTION WIDTH 12.6 % (11.6-14.8)
[2017-03-25 01:40] LABS: ALANINE AMINOTRANSFERASE 33 U/L (12-78); ALBUMIN 2.3 G/DL (3.4-5.0); ALBUMIN/GLOBULIN RATIO 0.5 (1.0-2.7); ALKALINE PHOSPHATASE 69 U/L (46-116); ANION GAP 9 mmol/L (5-15); ASPARTATE AMINO TRANSFERASE 23 U/L (15-37); BILIRUBIN,TOTAL 0.3 MG/DL (0.2-1.0); BLOOD UREA NITROGEN 7 mg/dL (7-18); CALCIUM 9.4 MG/DL (8.5-10.1); CARBON DIOXIDE 24 MMOL/L (21-32); CHLORIDE 109 MMOL/L (98-107); CREATININE 0.6 MG/DL (0.55-1.30); PHOSPHORUS 4.9 MG/DL (2.5-4.9); POTASSIUM 3.8 MMOL/L (3.5-5.1); SODIUM 142 MMOL/L (136-145)
[2017-03-25 04:00] VITALS: BP 127/87
[2017-03-25 08:00] VITALS: BP 112/74
[2017-03-25] MEDS: Pantoprazole Inj IV SCH (10:00)
[2017-03-25] MEDS: levETIRAcetam 500mg/5ml Liquid GT SCH ×2 (10:00→17:37)
[2017-03-25] MEDS: Heparin 5000 units/ml inj SUBQ SCH ×2 (10:01→20:02)
--- NOTE | 2017-03-25 11:35 | Pulmonolgy Critical Care Note ---
Critical Care - Asmt/Plan Problems: (1) Septic shock (2) Chronic respiratory failure (3) G tube feedings (4) Pneumonia Respiratory: monitor respiratory rate, adjust FIO2, CXR Cardiac: continue to monitor HR/BP Renal: F/U I&O, keep IV fluid Gastrointestinal: continue feedings/current rate Endocrine: monitor blood sugar, check TSH, check HgA1C Hematologic: transfuse if hgb<8.5 Neurologic: PRN Ativan, PRN Morphine, keep patient comfortable Affect: PRN ativan Prophylaxis: Protonix Notes Reviewed: eviction specialist, renal Discussed with: nurses, consultants, senior case managerpublic information relations manager - Objective Last 24 Hour Vital Signs Date Time Temp Pulse Resp B/P (MAP) Pulse Ox O2 Delivery O2 Flow Rate FiO2 03/25/17 11:07 82 18 40 03/25/17 09:01 100 19 40 03/25/17 08:00 98.7 79 21 112/74 100 Mechanical Ventilator 40 03/25/17 07:35 40 03/25/17 07:35 75 03/25/17 07:29 117 26 40 03/25/17 04:58 94 24 40 03/25/17 04:00 98.2 94 24 127/87 99 Mechanical Ventilator 40 03/25/17 04:00 40 03/25/17 03:18 94 03/25/17 03:16 83 18 40 03/25/17 01:20 89 18 40 03/25/17 00:00 40 03/25/17 00:00 99.4 77 18 111/65 100 Mechanical Ventilator 40 03/24/17 23:25 72 03/24/17 23:06 79 18 40 03/24/17 21:10 85 18 40 03/24/17 20:26 90 18 40 03/24/17 20:00 40 03/24/17 20:00 99.9 95 18 134/82 100 Mechanical Ventilator 40 03/24/17 19:07 93 03/24/17 16:34 87 18 40 03/24/17 16:00 86 03/24/17 16:00 98.7 95 19 125/88 100 Mechanical Ventilator 40 03/24/17 16:00 40 03/24/17 14:46 90 18 40 03/24/17 12:42 100 18 40 03/24/17 12:00 99.9 99 18 139/91 100 Mechanical Ventilator 40 03/24/17 12:00 40 Status: awake Condition: critical HEENT: atraumatic Neck: full ROM Lungs: clear Heart: HR/BP stable Abdomen: soft, non-tender, feeding tube Extremities: no C/C/E, edema Micro: Microbiology Date/Time Source Procedure Growth Status 03/22/17 16:35 Straight Cath Urine Culture - Final NO GROWTH AFTER 48 HOURS Complete Critical Care - Subjective ROS Limited/Unobtainable: No Condition: critical FI02: 40 Vent Support Breath Rate: 18 Vent Support Mode: AC Vent Tidal Volume: 500 Sputum Amount: Small PEEP: 5.0 PIP: 21 Tube Feeding Amount: 30 I&O: Intake and Output 03/24/17 03/25/17 19:00 07:00 Intake Total 720.0 ml 650.0 ml Output Total 350 ml 650 ml Balance 370.0 ml 0 ml Free Water 250 ml 100 ml IV Total 110.0 ml 220.0 ml Tube Feeding 360 ml 330 ml Output Urine Total 350 ml 650 ml # Bowel Movements 2 2 CXR: no change Labs: Laboratory Tests Test 03/25/17 01:00 White Blood Count 6.0 K/UL (4.8-10.8) Red Blood Count 2.85 M/UL (4.20-5.40) L Hemoglobin 9.0 G/DL (12.0-16.0) L Hematocrit 26.6 % (37.0-47.0) L Mean Corpuscular Volume 93 FL (80-99) Mean Corpuscular Hemoglobin 31.6 PG (27.0-31.0) H Mean Corpuscular Hemoglobin Concent 33.8 G/DL (32.0-36.0) Red Cell Distribution Width 12.6 % (11.6-14.8) Platelet Count 212 K/UL (150-450) Mean Platelet Volume 5.8 FL (6.5-10.1) L Neutrophils (%) (Auto) 63.3 % (45.0-75.0) Lymphocytes (%) (Auto) 23.0 % (20.0-45.0) Monocytes (%) (Auto) 8.9 % (1.0-10.0) Eosinophils (%) (Auto) 3.8 % (0.0-3.0) H Basophils (%) (Auto) 1.0 % (0.0-2.0) Sodium Level 142 MMOL/L (136-145) Potassium Level 3.8 MMOL/L (3.5-5.1) Chloride Level 109 MMOL/L (98-107) H Carbon Dioxide Level 24 MMOL/L (21-32) Anion Gap 9 mmol/L (5-15) Blood Urea Nitrogen 7 mg/dL (7-18) Creatinine 0.6 MG/DL (0.55-1.30) Estimat Glomerular Filtration Rate > 60 mL/min (>60) Glucose Level 120 MG/DL (74-106) H Calcium Level 9.4 MG/DL (8.5-10.1) Phosphorus Level 4.9 MG/DL (2.5-4.9) Magnesium Level 2.1 MG/DL (1.8-2.4) Total Bilirubin 0.3 MG/DL (0.2-1.0) Aspartate Amino Transf (AST/SGOT) 23 U/L (15-37) Alanine Aminotransferase (ALT/SGPT) 33 U/L (12-78) Alkaline Phosphatase 69 U/L (46-116) Total Protein 6.9 G/DL (6.4-8.2) Albumin 2.3 G/DL (3.4-5.0) L Globulin 4.6 g/dL Albumin/Globulin Ratio 0.5 (1.0-2.7) L Random Amikacin Level 13.4 MG/L LEATHA FOSS Mar 25, 2017 11:35
[2017-03-25 11:43] VITALS: BP 123/74
--- NOTE | 2017-03-25 12:29 | Infectious Diseases Prog Note ---
Assessment/Plan Assessment/Plan ASSESSMENT: The patient is a 41-year-old female with: Fever. improving Leukocytosis, SP VAPneum Chest x-ray showed right basilar opacity/infiltrate. Scx : PSA and Provid Rapid influenza A/B negative Status post tracheostomy. History of seizure disorder. Status post PEG. Hypertension. Ventilator-dependent respiratory failure. Diabetes. Anemia. PLAN: patient on IV Zosyn day # / - , add Amikacin d# 2 /5-7 ( PSA double coverage ) -03/24 SP IV vancomycin d# 3 Monitor CBC Monitor BMP. Monitor cultures (blood) Continue ventilator support Monitor chest x-ray Subjective Constitutional: Denies: no symptoms, fever, chills, fatigue, anorexia, drenching sweats, other Allergies: Coded Allergies: No Known Allergies (Unverified , 03/20/17) Subjective Fever Objective Vital Signs Last 24 Hour Vital Signs Date Time Temp Pulse Resp B/P (MAP) Pulse Ox O2 Delivery O2 Flow Rate FiO2 03/25/17 11:43 98.6 77 20 123/74 100 Mechanical Ventilator 40 03/25/17 11:38 65 03/25/17 11:38 40 03/25/17 11:07 82 18 40 03/25/17 09:01 100 19 40 03/25/17 08:00 98.7 79 21 112/74 100 Mechanical Ventilator 40 03/25/17 07:35 40 03/25/17 07:35 75 03/25/17 07:29 117 26 40 03/25/17 04:58 94 24 40 03/25/17 04:00 98.2 94 24 127/87 99 Mechanical Ventilator 40 03/25/17 04:00 40 03/25/17 03:18 94 03/25/17 03:16 83 18 40 03/25/17 01:20 89 18 40 03/25/17 00:00 40 03/25/17 00:00 99.4 77 18 111/65 100 Mechanical Ventilator 40 03/24/17 23:25 72 03/24/17 23:06 79 18 40 03/24/17 21:10 85 18 40 03/24/17 20:26 90 18 40 03/24/17 20:00 40 03/24/17 20:00 99.9 95 18 134/82 100 Mechanical Ventilator 40 2/13/18 19:07 93 03/24/17 16:34 87 18 40 03/24/17 16:00 86 03/24/17 16:00 98.7 95 19 125/88 100 Mechanical Ventilator 40 03/24/17 16:00 40 03/24/17 14:46 90 18 40 03/24/17 12:42 100 18 40 Height (Feet): 5 Height (Inches): 3.00 Weight (Pounds): 130 HEENT: anicteric Respiratory/Chest: normal breath sounds Cardiovascular: regular rhythm Abdomen: soft, non tender Microbiology Date/Time Source Procedure Growth Status 03/22/17 16:35 Straight Cath Urine Culture - Final NO GROWTH AFTER 48 HOURS Complete Laboratory Tests Test 03/25/17 01:00 White Blood Count 6.0 K/UL (4.8-10.8) Red Blood Count 2.85 M/UL (4.20-5.40) L Hemoglobin 9.0 G/DL (12.0-16.0) L Hematocrit 26.6 % (37.0-47.0) L Mean Corpuscular Volume 93 FL (80-99) Mean Corpuscular Hemoglobin 31.6 PG (27.0-31.0) H Mean Corpuscular Hemoglobin Concent 33.8 G/DL (32.0-36.0) Red Cell Distribution Width 12.6 % (11.6-14.8) Platelet Count 212 K/UL (150-450) Mean Platelet Volume 5.8 FL (6.5-10.1) L Neutrophils (%) (Auto) 63.3 % (45.0-75.0) Lymphocytes (%) (Auto) 23.0 % (20.0-45.0) Monocytes (%) (Auto) 8.9 % (1.0-10.0) Eosinophils (%) (Auto) 3.8 % (0.0-3.0) H Basophils (%) (Auto) 1.0 % (0.0-2.0) Sodium Level 142 MMOL/L (136-145) Potassium Level 3.8 MMOL/L (3.5-5.1) Chloride Level 109 MMOL/L (98-107) H Carbon Dioxide Level 24 MMOL/L (21-32) Anion Gap 9 mmol/L (5-15) Blood Urea Nitrogen 7 mg/dL (7-18) Creatinine 0.6 MG/DL (0.55-1.30) Estimat Glomerular Filtration Rate > 60 mL/min (>60) Glucose Level 120 MG/DL (74-106) H Calcium Level 9.4 MG/DL (8.5-10.1) Phosphorus Level 4.9 MG/DL (2.5-4.9) Magnesium Level 2.1 MG/DL (1.8-2.4) Total Bilirubin 0.3 MG/DL (0.2-1.0) Aspartate Amino Transf (AST/SGOT) 23 U/L (15-37) Alanine Aminotransferase (ALT/SGPT) 33 U/L (12-78) Alkaline Phosphatase 69 U/L (46-116) Total Protein 6.9 G/DL (6.4-8.2) Albumin 2.3 G/DL (3.4-5.0) L Globulin 4.6 g/dL Albumin/Globulin Ratio 0.5 (1.0-2.7) L Random Amikacin Level 13.4 MG/L Current Medications Medications (Trade) Dose Ordered Sig/Marlen Route PRN Reason Start Time Stop Time Status Last Admin Dose Admin Acetaminophen (Tylenol) 650 mg Q4H PRN ORAL FEVER 03/20/17 15:15 04/19/17 15:14 03/23/17 19:56 Albuterol/ Ipratropium (Albuterol/ Ipratropium) 3 ml EVERY 4 HOURS PRN HHN Shortness of Breath 03/20/17 15:15 03/25/17 15:14 Amikacin Protocol (Amikacin pharmacy to dose) 1 ea DAILY PRN MISC Per rx protocol 03/24/17 13:00 04/23/17 12:59 Amikacin Sulfate 800 mg/Sodium Chloride 113.2 ml @ 113.2 mls/ hr Q24H IV 03/24/17 15:00 03/31/17 23:59 03/24/17 15:07 Chlorhexidine Gluconate (Nancy-Hex 2%) 1 applic DAILY@2000 TOPIC 03/22/17 20:00 04/21/17 19:59 03/24/17 21:02 Dextrose (Dextrose 50%) STAT PRN IV Hypoglycemia 03/20/17 15:15 04/19/17 15:14 Heparin Sodium (Porcine) (Heparin 5000 units/ml) 5,000 units EVERY 12 HOURS SUBQ 03/20/17 21:00 04/19/17 20:59 03/25/17 10:01 Levetiracetam (Keppra) 1,000 mg BID GT 03/20/17 18:00 04/19/17 17:59 03/25/17 10:00 Lorazepam (Ativan 2mg/ml 1ml) 2 mg EVERY 2 HOURS PRN IV For Anxiety 03/20/17 15:15 03/27/17 15:14 03/21/17 01:43 Morphine Sulfate (Morphine Sulfate) 4 mg EVERY 4 HOURS PRN IVP Severe Pain (Pain Scale 7-10) 03/20/17 15:15 03/27/17 15:14 Ondansetron HCl (Zofran) 4 mg Q6H PRN IVP Nausea & Vomiting 03/20/17 15:15 04/19/17 15:14 Pantoprazole (Protonix) 40 mg DAILY IV 03/21/17 09:00 04/20/17 08:59 03/25/17 10:00 Piperacillin Sod/ Tazobactam Sod 4.5 gm/Sodium Chloride 110 ml @ 27.5 mls/hr Q8H IVPB 03/22/17 18:00 03/29/17 17:59 03/25/17 10:02 Polyethylene Glycol (Miralax) 17 gm DAILYPRN PRN ORAL Constipation 03/20/17 15:15 04/19/17 15:14 LEATHA LIND M.D. Mar 25, 2017 12:28
[2017-03-25] MEDS: Amikacin 800 MG in NS 110 ML IV SCH (14:24)
[2017-03-25 16:00] VITALS: BP 111/75
[2017-03-25 20:00] VITALS: BP 123/80
[2017-03-25] MEDS: Dyna-Hex 2% Top Sol 2oz TOPIC SCH (20:00)
[2017-03-26] VITALS: BP 121/85
[2017-03-26] MEDS: Piperacillin/Tazobactam 4.5 GM in NS 110 ML IVPB SCH ×3 (01:13→17:45)
[2017-03-26 04:00] VITALS: BP 128/89
[2017-03-26 04:49] LABS: BASOPHILS % (AUTO) 0.8 % (0.0-2.0); EOSINOPHILS % (AUTO) 4.6 % (0.0-3.0); HEMATOCRIT 24.7 % (37.0-47.0); HEMOGLOBIN 8.5 G/DL (12.0-16.0); LYMPHOCYTES % (AUTO) 22.7 % (20.0-45.0); MEAN CORPUSCULAR VOLUME 93 FL (80-99); MONOCYTES % (AUTO) 8.7 % (1.0-10.0); NEUTROPHILS % (AUTO) 63.1 % (45.0-75.0); PLATELET COUNT 235 K/UL (150-450); RED BLOOD COUNT 2.64 M/UL (4.20-5.40); RED CELL DISTRIBUTION WIDTH 12.7 % (11.6-14.8); WHITE BLOOD COUNT 5.7 K/UL (4.8-10.8)
[2017-03-26 05:02] LABS: ALANINE AMINOTRANSFERASE 38 U/L (12-78); ALBUMIN 2.3 G/DL (3.4-5.0); ALBUMIN/GLOBULIN RATIO 0.5 (1.0-2.7); ALKALINE PHOSPHATASE 66 U/L (46-116); ANION GAP 10 mmol/L (5-15); ASPARTATE AMINO TRANSFERASE 28 U/L (15-37); BILIRUBIN,TOTAL 0.3 MG/DL (0.2-1.0); BLOOD UREA NITROGEN 9 mg/dL (7-18); CALCIUM 9.3 MG/DL (8.5-10.1); CARBON DIOXIDE 25 MMOL/L (21-32); CHLORIDE 108 MMOL/L (98-107); CREATININE 0.6 MG/DL (0.55-1.30); PHOSPHORUS 4.9 MG/DL (2.5-4.9); POTASSIUM 3.2 MMOL/L (3.5-5.1); SODIUM 142 MMOL/L (136-145)
[2017-03-26 08:00] VITALS: BP 106/84
[2017-03-26] MEDS: levETIRAcetam 500mg/5ml Liquid GT SCH ×2 (09:29→17:33)
[2017-03-26] MEDS: Pantoprazole Inj IV SCH (09:29)
[2017-03-26] MEDS: Heparin 5000 units/ml inj SUBQ SCH ×2 (09:30→20:11)
[2017-03-26] MEDS ORDERED: ZOSYN 3.373.375 GM/1 IVPB (11:28)
[2017-03-26] MEDS ORDERED: AMIKACIN S1000 MG/4 IJ (11:31)
--- NOTE | 2017-03-26 11:32 | Pulmonolgy Critical Care Note ---
Critical Care - Asmt/Plan Problems: (1) Septic shock (2) Chronic respiratory failure (3) G tube feedings (4) Pneumonia Respiratory: monitor respiratory rate, adjust FIO2 Cardiac: start pressors, continue pressors, stop pressors Renal: F/U I&O Infectious Disease: continue antibiotics Gastrointestinal: hold feedings Endocrine: continue sliding scale insulin Hematologic: monitor H/H, transfuse if hgb<8.5 Neurologic: PRN Ativan, keep patient comfortable Prophylaxis: Protonix, Heparin Notes Reviewed: key punch teacher, cardio Discussed with: nurses, consultants, case resolution specialistskating rink manager - Objective Last 24 Hour Vital Signs Date Time Temp Pulse Resp B/P (MAP) Pulse Ox O2 Delivery O2 Flow Rate FiO2 03/26/17 09:18 79 19 30 03/26/17 08:00 87 03/26/17 08:00 40 03/26/17 08:00 98.6 87 18 106/84 100 Mechanical Ventilator 40 03/26/17 06:35 81 18 30 03/26/17 05:19 97 19 30 03/26/17 04:00 40 03/26/17 04:00 98 03/26/17 04:00 98.9 92 18 128/89 100 Mechanical Ventilator 40 03/26/17 03:02 97 18 30 03/26/17 01:30 90 18 30 03/26/17 00:00 97 03/26/17 00:00 98.7 91 18 121/85 100 Mechanical Ventilator 40 03/26/17 00:00 40 03/26/17 00:00 40 03/25/17 23:34 92 18 30 03/25/17 20:36 85 18 30 03/25/17 20:00 82 03/25/17 20:00 98.2 88 19 123/80 100 Mechanical Ventilator 40 03/25/17 20:00 40 03/25/17 19:29 88 18 40 03/25/17 17:23 75 18 40 03/25/17 16:00 40 03/25/17 16:00 98.6 75 18 111/75 100 Mechanical Ventilator 40 03/25/17 15:20 72 18 40 03/25/17 15:13 72 03/25/17 13:20 67 18 40 03/25/17 11:43 98.6 77 20 123/74 100 Mechanical Ventilator 40 03/25/17 11:38 65 03/25/17 11:38 40 Status: awake Condition: critical Lungs: clear Heart: regular Abdomen: non-tender, active bowel sounds, feeding tube Extremities: no C/C/E, edema Critical Care - Subjective Condition: critical FI02: 30 Vent Support Breath Rate: 18 Vent Support Mode: AC Vent Tidal Volume: 500 Sputum Amount: Small PEEP: 5.0 PIP: 22 Tube Feeding Amount: 30 I&O: Intake and Output 03/25/17 03/26/17 19:00 07:00 Intake Total 940 ml 570.0 ml Output Total 600 ml 400 ml Balance 340 ml 170.0 ml Intake Oral 100 ml Free Water 150 ml 100 ml IV Total 330 ml 110.0 ml Tube Feeding 360 ml 360 ml Output Urine Total 600 ml 400 ml # Bowel Movements 4 4 CXR: no change Labs: Laboratory Tests Test 03/26/17 03:55 White Blood Count 5.7 K/UL (4.8-10.8) Red Blood Count 2.64 M/UL (4.20-5.40) L Hemoglobin 8.5 G/DL (12.0-16.0) L Hematocrit 24.7 % (37.0-47.0) L Mean Corpuscular Volume 93 FL (80-99) Mean Corpuscular Hemoglobin 32.1 PG (27.0-31.0) H Mean Corpuscular Hemoglobin Concent 34.3 G/DL (32.0-36.0) Red Cell Distribution Width 12.7 % (11.6-14.8) Platelet Count 235 K/UL (150-450) Mean Platelet Volume 6.2 FL (6.5-10.1) L Neutrophils (%) (Auto) 63.1 % (45.0-75.0) Lymphocytes (%) (Auto) 22.7 % (20.0-45.0) Monocytes (%) (Auto) 8.7 % (1.0-10.0) Eosinophils (%) (Auto) 4.6 % (0.0-3.0) H Basophils (%) (Auto) 0.8 % (0.0-2.0) Sodium Level 142 MMOL/L (136-145) Potassium Level 3.2 MMOL/L (3.5-5.1) L Chloride Level 108 MMOL/L (98-107) H Carbon Dioxide Level 25 MMOL/L (21-32) Anion Gap 10 mmol/L (5-15) Blood Urea Nitrogen 9 mg/dL (7-18) Creatinine 0.6 MG/DL (0.55-1.30) Estimat Glomerular Filtration Rate > 60 mL/min (>60) Glucose Level 114 MG/DL (74-106) H Calcium Level 9.3 MG/DL (8.5-10.1) Phosphorus Level 4.9 MG/DL (2.5-4.9) Magnesium Level 1.8 MG/DL (1.8-2.4) Total Bilirubin 0.3 MG/DL (0.2-1.0) Aspartate Amino Transf (AST/SGOT) 28 U/L (15-37) Alanine Aminotransferase (ALT/SGPT) 38 U/L (12-78) Alkaline Phosphatase 66 U/L (46-116) Total Protein 7.0 G/DL (6.4-8.2) Albumin 2.3 G/DL (3.4-5.0) L Globulin 4.7 g/dL Albumin/Globulin Ratio 0.5 (1.0-2.7) L LEATHA FOSS Mar 26, 2017 11:32
[2017-03-26 12:00] VITALS: BP 115/75
[2017-03-26] MEDS: Amikacin 800 MG in NS 110 ML IV SCH (15:24)
[2017-03-26 15:57] VITALS: BP 138/89
--- NOTE | 2017-03-26 16:20 | Infectious Diseases Prog Note ---
Assessment/Plan Assessment/Plan ASSESSMENT: The patient is a 41-year-old female with: Fever. improving Leukocytosis, SP VAPneum Chest x-ray showed right basilar opacity/infiltrate. Scx : PSA ( I Gentamicin, otherwise S) and Provid ( S ertapenem, zosyn, cefepime, amikacin) Rapid influenza A/B negative Status post tracheostomy. History of seizure disorder. Status post PEG. Hypertension. Ventilator-dependent respiratory failure. Diabetes. Anemia. PLAN: patient on IV Zosyn day # 5 / - , and Amikacin d# 3 /5 ( PSA double coverage ) -03/24 SP IV vancomycin d# 3 Monitor CBC Monitor BMP. Monitor cultures (blood) Continue ventilator support Monitor chest x-ray Subjective Allergies: Coded Allergies: No Known Allergies (Unverified , 03/20/17) Subjective afebrile in >48hrs no leukocytosis Objective Vital Signs Last 24 Hour Vital Signs Date Time Temp Pulse Resp B/P (MAP) Pulse Ox O2 Delivery O2 Flow Rate FiO2 03/26/17 15:57 87 03/26/17 15:57 98.0 87 19 138/89 100 Mechanical Ventilator 40 03/26/17 15:57 40 03/26/17 14:45 75 18 30 03/26/17 12:39 67 18 30 03/26/17 12:00 85 03/26/17 12:00 98.5 82 18 115/75 100 Mechanical Ventilator 40 03/26/17 12:00 40 03/26/17 10:42 70 19 30 03/26/17 09:18 79 19 30 03/26/17 08:00 87 03/26/17 08:00 40 03/26/17 08:00 98.6 87 18 106/84 100 Mechanical Ventilator 40 03/26/17 06:35 81 18 30 03/26/17 05:19 97 19 30 03/26/17 04:00 40 03/26/17 04:00 98 03/26/17 04:00 98.9 92 18 128/89 100 Mechanical Ventilator 40 03/26/17 03:02 97 18 30 03/26/17 01:30 90 18 30 03/26/17 00:00 97 03/26/17 00:00 98.7 91 18 121/85 100 Mechanical Ventilator 40 03/26/17 00:00 40 03/26/17 00:00 40 03/25/17 23:34 92 18 30 03/25/17 20:36 85 18 30 03/25/17 20:00 82 03/25/17 20:00 98.2 88 19 123/80 100 Mechanical Ventilator 40 03/25/17 20:00 40 03/25/17 19:29 88 18 40 03/25/17 17:23 75 18 40 Height (Feet): 5 Height (Inches): 3.00 Weight (Pounds): 130 Objective HEENT: anicteric Respiratory/Chest: normal breath sounds Cardiovascular: regular rhythm Abdomen: soft, non tender Laboratory Tests Test 03/26/17 03:55 White Blood Count 5.7 K/UL (4.8-10.8) Red Blood Count 2.64 M/UL (4.20-5.40) L Hemoglobin 8.5 G/DL (12.0-16.0) L Hematocrit 24.7 % (37.0-47.0) L Mean Corpuscular Volume 93 FL (80-99) Mean Corpuscular Hemoglobin 32.1 PG (27.0-31.0) H Mean Corpuscular Hemoglobin Concent 34.3 G/DL (32.0-36.0) Red Cell Distribution Width 12.7 % (11.6-14.8) Platelet Count 235 K/UL (150-450) Mean Platelet Volume 6.2 FL (6.5-10.1) L Neutrophils (%) (Auto) 63.1 % (45.0-75.0) Lymphocytes (%) (Auto) 22.7 % (20.0-45.0) Monocytes (%) (Auto) 8.7 % (1.0-10.0) Eosinophils (%) (Auto) 4.6 % (0.0-3.0) H Basophils (%) (Auto) 0.8 % (0.0-2.0) Sodium Level 142 MMOL/L (136-145) Potassium Level 3.2 MMOL/L (3.5-5.1) L Chloride Level 108 MMOL/L (98-107) H Carbon Dioxide Level 25 MMOL/L (21-32) Anion Gap 10 mmol/L (5-15) Blood Urea Nitrogen 9 mg/dL (7-18) Creatinine 0.6 MG/DL (0.55-1.30) Estimat Glomerular Filtration Rate > 60 mL/min (>60) Glucose Level 114 MG/DL (74-106) H Calcium Level 9.3 MG/DL (8.5-10.1) Phosphorus Level 4.9 MG/DL (2.5-4.9) Magnesium Level 1.8 MG/DL (1.8-2.4) Total Bilirubin 0.3 MG/DL (0.2-1.0) Aspartate Amino Transf (AST/SGOT) 28 U/L (15-37) Alanine Aminotransferase (ALT/SGPT) 38 U/L (12-78) Alkaline Phosphatase 66 U/L (46-116) Total Protein 7.0 G/DL (6.4-8.2) Albumin 2.3 G/DL (3.4-5.0) L Globulin 4.7 g/dL Albumin/Globulin Ratio 0.5 (1.0-2.7) L Current Medications Medications (Trade) Dose Ordered Sig/Marlen Route PRN Reason Start Time Stop Time Status Last Admin Dose Admin Acetaminophen (Tylenol) 650 mg Q4H PRN ORAL FEVER 03/20/17 15:15 04/19/17 15:14 03/23/17 19:56 Amikacin Protocol (Amikacin pharmacy to dose) 1 ea DAILY PRN MISC Per rx protocol 03/24/17 13:00 04/23/17 12:59 Amikacin Sulfate 800 mg/Sodium Chloride 113.2 ml @ 113.2 mls/ hr Q24H IV 03/24/17 15:00 03/31/17 23:59 03/26/17 15:24 Chlorhexidine Gluconate (Nancy-Hex 2%) 1 applic DAILY@2000 TOPIC 03/22/17 20:00 04/21/17 19:59 03/25/17 20:00 Dextrose (Dextrose 50%) STAT PRN IV Hypoglycemia 03/20/17 15:15 04/19/17 15:14 Heparin Sodium (Porcine) (Heparin 5000 units/ml) 5,000 units EVERY 12 HOURS SUBQ 03/20/17 21:00 04/19/17 20:59 03/26/17 09:30 Levetiracetam (Keppra) 1,000 mg BID GT 03/20/17 18:00 04/19/17 17:59 03/26/17 09:29 Lorazepam (Ativan 2mg/ml 1ml) 2 mg EVERY 2 HOURS PRN IV For Anxiety 03/20/17 15:15 03/27/17 15:14 03/21/17 01:43 Morphine Sulfate (Morphine Sulfate) 4 mg EVERY 4 HOURS PRN IVP Severe Pain (Pain Scale 7-10) 03/20/17 15:15 03/27/17 15:14 03/26/17 15:39 Ondansetron HCl (Zofran) 4 mg Q6H PRN IVP Nausea & Vomiting 03/20/17 15:15 04/19/17 15:14 Pantoprazole (Protonix) 40 mg DAILY IV 03/21/17 09:00 04/20/17 08:59 03/26/17 09:29 Piperacillin Sod/ Tazobactam Sod 4.5 gm/Sodium Chloride 110 ml @ 27.5 mls/hr Q8H IVPB 03/22/17 18:00 03/29/17 17:59 03/26/17 09:31 Polyethylene Glycol (Miralax) 17 gm DAILYPRN PRN ORAL Constipation 03/20/17 15:15 04/19/17 15:14 Rachelle Brar M.D. Mar 26, 2017 16:20
[2017-03-26] MEDS ORDERED: NS 500ML ONE (17:43)
[2017-03-26] MEDS ORDERED: Tubing IV Secondary IV ONE (17:43)
[2017-03-26 20:00] VITALS: BP 160/120
[2017-03-26] MEDS: Dyna-Hex 2% Top Sol 2oz TOPIC SCH (20:09)
--- NOTE | 2017-03-27 12:29 | Discharge Summary ---
Discharge Summary Hospital Course Date of Admission Mar 20, 2017 at 12:05 Date of Discharge Mar 26, 2017 at 20:49 Admitting Diagnosis SEPSIS/ TRACHEOSTOMY HPI Laurie Morales is a 41 year old female who was admitted on Mar 20, 2017 at 12:05 for Sepsis/Tracheostomy Hospital Course [id number] Discharge Discharge Disposition Patient was discharged to SNF/Subacute Facility(03) Discharge Diagnoses: Aby Riddle NP Mar 27, 2017 12:29
--- NOTE | 2017-03-28 02:00 | Discharge Summary 2 SIG ---
DATE OF ADMISSION: 03/20/2017 DATE OF DISCHARGE: 03/26/2017 PEDIATRIC RN: Hardeep Tyler M.D. BRIEF HOSPITAL COURSE: The patient is a 41-year-old female with history of chronic respiratory failure on trach and vent and has a percutaneous endoscopic gastrostomy, presented from intermediate for reports of fever and shortness of breath. On arrival to ED, the patient was tachypneic and has respiratory distress. She had a documented fever at the intermediate. Temperature on arrival was 100.8. Sepsis protocol was initiated. She was given IV fluid bolus, however, again blood pressure dropped, required intravenous pressors and was then admitted to intensive care unit. Blood work revealed leukocytosis, WBC of 19, hemoglobin was 4, hematocrit was 13, and lactic acid was 4.4. Chest x-ray done showed bilateral effusions with right lower lobe infiltrate. She was initially started on IV vancomycin. She was seen by Infectious Disease specialist. Zosyn was added. Influenza A and B was negative. Repeat hemoglobin check showed 10.1. First result probably laboratory error, no blood transfusion was given. Sputum culture showed growth of Pseudomonas and Providencia, amikacin was added and vancomycin was discontinued. Fever resolved. Leukocytosis resolved. Blood culture did not isolate any growth. Urine culture did not isolate any growth. Venous duplex was negative. She was eventually discharged back to [facility]. FINAL DIAGNOSES: 1. Sepsis with septic shock. 2. Acute on chronic respiratory failure. 3. Pneumonia. 4. Status post tracheostomy. 5. Seizure disorder. 6. Status post percutaneous endoscopic gastrostomy. 7. Hypertension. 8. Diabetes. 9. Anemia. DISPOSITION: The patient was discharged back to [facility]. DISCHARGE MEDICATIONS: Refer to medication list. Continue with amikacin for four days and Zosyn for 10 days. Molly Prabhakar M.D. I have been assigned to dictate discharge summary on this account and I was not involved in the patient's management. Aby Riddle N.P. DR: MINE JOB#: [id number] CC: MADELINE
== END 2017-03-26 20:49 | DRG 720 ==
LOC: EDBD 10:24 → EMR 10:40 → 2W 12:05 → EDBEDREQ 12:26 → ICU 18:14 → 2W 03-21 20:22
PROC: 5A1955Z Respiratory Ventilation, Greater than 96 Consecutive Hours (ICD-10-PCS; principal; 2017-03-20)
DX: A41.9 Sepsis, unspecified organism (principal); J96.20 Acute and chronic respiratory failure, unspecified whether with hypoxia or hypercapnia; R65.21 Severe sepsis with septic shock; Z99.11 Dependence on respirator [ventilator] status; J18.9 Pneumonia, unspecified organism; Z93.0 Tracheostomy status; Z93.1 Gastrostomy status; G40.909 Epilepsy, unspecified, not intractable, without status epilepticus; E11.9 Type 2 diabetes mellitus without complications; I10 Essential (primary) hypertension; D64.9 Anemia, unspecified
CPT/HCPCS: 36415; 71045; 80053; 80069; 80150; 80202; 81003; 82550; 82553; 82962; 83605; 83690; 83735; 83880; 84100; 84484; 85007; 85025; 85651; 86710; 86850; 86900; 86901; 86920; 87040; 87070; 87081; 87086; 87181; 87205; 93005; 93970; 94002; 94003; J7620; J8499